=== PATIENT | female | born 1985 | race Caucasian/White ===

== ENCOUNTER 2017-05-10 19:04 | Emergency (ER) | payer BC, SELFPAY | END 2017-05-10 20:18 | disposition home or self-care (01) | PROVIDERS: Emergency Provider Nurse Practitioner; Family Provider Emergency Medicine; Visit Provider Nurse Practitioner | DX: J06.9 Acute upper respiratory infection, unspecified (principal); I10 Essential (primary) hypertension; Z72.0 Tobacco use | CPT/HCPCS: 87804; 87880; 99201 ==

== ENCOUNTER 2017-07-08 11:15 | Emergency (ER) | payer MEDICAID, SELFPAY ==
[2017-07-08 11:33] VITALS: BP 132/86; PULSE 90; RESP 20; TEMP 36.2; O2SAT 98; BMI 39.9
--- NOTE | 2017-07-08 11:47 | HMH.EDUTC ---
[facility] [place] Clinical Impression: Vertigo Disposition: Home, Self-Care Condition on Discharge: Good Instructions: DI for Vertigo, Vertigo Additional Instructions: Take medication as prescribed FOllow up with family doctor for further treatment and evaluation for dizziness and continue medication if Family doctor requests Return if needed Slow easy movements may help to decrease dizziness If your symptoms worsen or become life threatening go straight to the ER Prescriptions: Meclizine HCl [Meclizine 25mg Tab] 25 mg PO BID #20 tab Referrals: Garth Moreland APRN [Primary Care Provider] - Time of Disposition: 12:28 Medical Decision Making - Medical Records Medical records reviewed: Yes: I reviewed the patient's medical records. Vital Signs: 07/08/17 11:33 Temperature 97.2 F L Temperature Source Temporal Artery Scan Pulse Rate [Right] 90 Respiratory Rate 20 Blood Pressure [Right Arm] 132/86 Blood Pressure Mean [Right Arm] 101 Blood Pressure Source [Right Arm] Automatic Cuff Blood Pressure Position [Right Arm] Sitting 02 Sat by Pulse Oximetry 98 Oxygen Delivery Method Room Air - Lab Data Lab Results 07/08/17 11:39: Influenza Type A Ag Negative, Influenza Type B Ag Negative Orders (Tests/Meds): ED MEDICATIONS Discontinued Medications Generic Name Dose Route Start Last Admin Trade Name Freq PRN Reason Stop Dose Admin Meclizine HCl 25 mg 07/08/17 12:00 07/08/17 12:09 Antivert 25mg Tablet PO 07/08/17 12:01 25 mg ONCE ONE Administration - Jorge Inquiry Pt receiving controlled substance: No Jorge was queried for this patient: No - Reevaluation(s) Time: 12:23 Reevaluation #1: Patient state that Meclizine helped with dizziness, State that she is feeling much better and no longer feeling dizzy Patient was educated on Meclizne and informed that she would be given a prescription for Meclizine and would need to follow up with family doctor to continue mediacation [facility] [place] HPI - General Stated complaint: dizziness, nausea Mode of Arrival: Ambulatory Source of Information: Patient Limitations: No Limitations Description of Symptoms (Recalled from Triage Doc. by RN): DIZZY, NAUSEATED X2 DAYS HEENT Symptoms (Recalled from RN notes): No Resp Symptoms (Recalled from RN notes): No Skin Symptoms (Recalled from RN notes): No MS Symptoms (Recalled from RN notes): No Functional Status (Recalled from RN notes): N - History of Present Illness Provider Complaint: Patient state that she is suppose to get her TSH drawn this weekend for her family doctor State that she has been having some nausea and feeling dizzy State that she is not sure if she may have some fluid in her ears or not State that she just isn't feeling well - Related Data Home Medications Medication Instructions Recorded Confirmed albuterol sulfate HFA 90 1 puff INHALATION Q4H g 06/19/17 mcg/actuation aerosol inhaler fluticasone 50 mcg/actuation nasal 50 mcg INTRANASAL QDAY PRN 06/19/17 spray,suspension levothyroxine 125 mcg tablet 125 mcg PO QDAY tab 06/19/17 montelukast 10 mg tablet 10 mg PO QHS 06/19/17 norgestimate 0.25 mg-ethinyl 1 tab PO QDAY 06/19/17 estradiol 35 mcg tablet levocetirizine 5 mg tablet 5 mg PO QHS 06/20/17 Lisinopril [Prinivil 10mg Tablet] 10 mg PO QDAY 07/08/17 07/08/17 Previous Rx's Medication Instructions Recorded Meclizine HCl [Meclizine 25mg Tab] 25 mg PO BID #20 tab 07/08/17 Allergies Allergy/AdvReac Type Severity Reaction Status Date / Time amoxicillin [From AUGMENTIN] Allergy Unknown Verified 06/20/17 16:48 clavulanic acid Allergy Unknown Verified 06/20/17 16:48 [From AUGMENTIN] phenytoin [PHENYTOIN] Allergy Unknown Verified 06/20/17 16:48 - Worker's Comp Is this a Worker's Comp case?: No [facility] History I have reviewed the patient's past medical history: Yes Medical History: Reports:: Hypertension Other Medical History: Reports:
[2017-07-08 11:52] LABS: UTC Influenza A Antigen Negative (Negative); UTC Influenza B Antigen Negative (Negative)
--- NOTE | 2017-07-08 11:58 | ED_ITS ---
[facility] [place] Disposition Clinical Impression: Vertigo Disposition: Home, Self-Care Condition on Discharge: Good Instructions: DI for Vertigo, Vertigo Additional Instructions: Take medication as prescribed FOllow up with family doctor for further treatment and evaluation for dizziness and continue medication if Family doctor requests Return if needed Slow easy movements may help to decrease dizziness If your symptoms worsen or become life threatening go straight to the ER Prescriptions: Meclizine HCl [Meclizine 25mg Tab] 25 mg PO BID #20 tab Referrals: Garth Moreland APRN [Primary Care Provider] - Time of Disposition: 12:28 Medical Decision Making - Medical Records Medical records reviewed: Yes: I reviewed the patient's medical records. Vital Signs: 07/08/17 11:33 Temperature 97.2 F L Temperature Source Temporal Artery Scan Pulse Rate [Right] 90 Respiratory Rate 20 Blood Pressure [Right Arm] 132/86 Blood Pressure Mean [Right Arm] 101 Blood Pressure Source [Right Arm] Automatic Cuff Blood Pressure Position [Right Arm] Sitting 02 Sat by Pulse Oximetry 98 Oxygen Delivery Method Room Air - Lab Data Lab Results 07/08/17 11:39: Influenza Type A Ag Negative, Influenza Type B Ag Negative Orders (Tests/Meds): ED MEDICATIONS Discontinued Medications Generic Name Dose Route Start Last Admin Trade Name Freq PRN Reason Stop Dose Admin Meclizine HCl 25 mg 07/08/17 12:00 07/08/17 12:09 Antivert 25mg Tablet PO 07/08/17 12:01 25 mg ONCE ONE Administration - Jorge Inquiry Pt receiving controlled substance: No Jorge was queried for this patient: No - Reevaluation(s) Time: 12:23 Reevaluation #1: Patient state that Meclizine helped with dizziness, State that she is feeling much better and no longer feeling dizzy Patient was educated on Meclizne and informed that she would be given a prescription for Meclizine and would need to follow up with family doctor to continue mediacation [facility] [place] HPI - General Stated complaint: dizziness, nausea Mode of Arrival: Ambulatory Source of Information: Patient Limitations: No Limitations Description of Symptoms (Recalled from Triage Doc. by RN): DIZZY, NAUSEATED X2 DAYS HEENT Symptoms (Recalled from RN notes): No Resp Symptoms (Recalled from RN notes): No Skin Symptoms (Recalled from RN notes): No MS Symptoms (Recalled from RN notes): No Functional Status (Recalled from RN notes): N - History of Present Illness Provider Complaint: Patient state that she is suppose to get her TSH drawn this weekend for her family doctor State that she has been having some nausea and feeling dizzy State that she is not sure if she may have some fluid in her ears or not State that she just isn't feeling well - Related Data Home Medications Medication Instructions Recorded Confirmed albuterol sulfate HFA 90 1 puff INHALATION Q4H g 06/19/17 mcg/actuation aerosol inhaler fluticasone 50 mcg/actuation nasal 50 mcg INTRANASAL QDAY PRN 06/19/17 spray,suspension levothyroxine 125 mcg tablet 125 mcg PO QDAY tab 06/19/17 montelukast 10 mg tablet 10 mg PO QHS 06/19/17 norgestimate 0.25 mg-ethinyl 1 tab PO QDAY 06/19/17 estradiol 35 mcg tablet levocetirizine 5 mg tablet 5 mg PO QHS 06/20/17 Lisinopril
[2017-07-08 12:26] VITALS: BP 130/78; PULSE 65; RESP 20; TEMP 36.6; O2SAT 98
== END 2017-07-08 12:29 | disposition home or self-care (01) ==
PROVIDERS: Emergency Provider Nurse Practitioner; Family Provider Emergency Medicine; PCP Nurse Practitioner Family
DX: R42 Dizziness and giddiness (principal); I10 Essential (primary) hypertension; E03.9 Hypothyroidism, unspecified; Z79.899 Other long term (current) drug therapy; Z88.1 Allergy status to other antibiotic agents; F17.210 Nicotine dependence, cigarettes, uncomplicated
CPT/HCPCS: 87804; 99202

== ENCOUNTER → 2017-07-08 12:39 | Outpatient (CLI) | payer MEDICAID, SELFPAY ==
[2017-07-08 13:02] LABS: Basophils # 0.1 K/mm3 (0-0.2); Basophils % 0.5 % (0.1-2.0); Eosinophils # 0.3 K/mm3 (0.0-0.4); Hematocrit 40.9 % (37.0-47.0); Hemoglobin 13.7 g/dL (12.2-16.2); Lymphocytes # 2.7 K/mm3 (0.7-4.5); Mean Corpuscular HGB Conc 33.5 g/dL (31.8-35.4); Mean Corpuscular Hemoglobin 30.8 pg (27.0-31.2); Mean Platelet Volume 8.4 fl (7.4-10.4); Monocytes # 0.3 K/mm3 (0.1-1.0); Monocytes % 3.4 % (1.7-9.3); Neutrophils # 6.7 K/mm3 (1.8-7.8); Neutrophils % 66.2 % (37.0-80.0); Platelet Count 239 K/mm3 (142-424); Red Blood Count 4.45 M/mm3 (4.20-5.40); Red Cell Distribution Width 12.8 % (11.5-17.5); White Blood Count 10.1 K/mm3 (4.8-10.8)
[2017-07-08 13:31] LABS: Alanine Aminotransferase 29 U/L (12-78); Albumin Level 3.6 gm/dL (3.4-5.0); Albumin/Globulin Ratio 1.1 (1.1-1.8); Alkaline Phosphatase 74 U/L (46-116); Anion Gap 10.2 mEq/L (5-15); Aspartate Amino Transferase 12 U/L (15-37); Bilirubin,Total 0.2 mg/dL (0.2-1.0); Blood Urea Nitrogen 14 mg/dL (7-18); Calcium 8.8 mg/dL (8.5-10.1); Carbon Dioxide 29 mmol/L (21.0-32.0); Chloride 103 mmol/L (98-107); Creatinine,Serum 0.98 mg/dL (0.55-1.02); Estimated Glomerular Filt Rate 65 ml/min (>60); GFR (African American) 79 ML/MIN (>60); Globulin 3.4 gm/dl (1.3-3.2); Glucose 117 mg/dL (74-106); Potassium 4.2 mmoL/L (3.5-5.1); Sodium 138 mmol/L (136-145); T4 (Thyroxine) 13.5 ug/dl (4.7-13.3); Thyroid Stimulating Hormone 1.16 uIU/ml (0.358-3.740)
[2017-07-11 06:37] LABS: Vitamin B12 328 pg/mL (232-1245)
[2017-07-13 01:07] LABS: 1,25-Dihydroxy, Vitamin D-2 <10 pg/mL (.)
[2017-07-13 08:14] LABS: 1,25 Dihydroxy Vitamin D 107 pg/mL (.); 1,25-Dihydroxy, Vitamin D-3 106 pg/mL (.)
== END ==
PROVIDERS: PCP Nurse Practitioner Family; Visit Provider Nurse Practitioner Family
DX: R53.83 Other fatigue (principal); F41.9 Anxiety disorder, unspecified
CPT/HCPCS: 36415; 80053; 82607; 82652; 84436; 84443; 85025

== ENCOUNTER 2017-07-19 13:23 | Emergency (ER) | payer MEDICAID, SELFPAY ==
[2017-07-19 13:35] VITALS: BP 102/78; PULSE 88; RESP 20; TEMP 36.8; O2SAT 98; BMI 39.9
--- NOTE | 2017-07-19 14:02 | HMH.EDUTC ---
[facility] – [place] Disposition Clinical Impression: URI (upper respiratory infection) Qualifiers: URI type: unspecified URI Qualified Code(s): J06.9 - Acute upper respiratory infection, unspecified Disposition: Home, Self-Care Condition on Discharge: Good Instructions: Sore Throat, DI for Sinusitis Additional Instructions: * Monitor Temp. Tylenol and/or Ibuprofen as needed. ER if fever is no less than 101 despite alternating Tylenol and Ibuprofen * Encourage fluids, water, Gatorade, powerade, pedialyte if /toddler/or child * Warm salt water gargles for throat irritation *Warm fluids *Sore throat lozenges *Sleep elevated *humidifier or vaporizer Lots of rest Increase fluids, water, Gatorade, powerade Follow up IMMEDIATELY for new or worsening of symptoms OR no noticeable improvement over the next 48-72 hours. 911 immediately for any life threatening symptoms such as chest pain or difficulty breathing Referrals: Paul Apple MD [Primary Care Provider] - Forms: Work/School Release Time of Disposition: 14:18 Medical Decision Making - Medical Records Medical records reviewed: Yes: I reviewed the patient's medical records. Vital Signs: 07/19/17 13:35 Temperature 98.2 F Temperature Source Temporal Artery Scan Pulse Rate [Right] 88 Respiratory Rate 20 Blood Pressure [Right Arm] 102/78 Blood Pressure Mean [Right Arm] 86 Blood Pressure Source [Right Arm] Automatic Cuff Blood Pressure Position [Right Arm] Sitting 02 Sat by Pulse Oximetry 98 Oxygen Delivery Method Room Air - Lab Data Lab results reviewed: Yes: I reviewed the patient's lab results. - Jorge Inquiry Pt receiving controlled substance: No Jorge was queried for this patient: No [facility] [place] HPI - General Stated complaint: soa,wheezing,body aches Mode of Arrival: Ambulatory Source of Information: Patient Limitations: No Limitations Description of Symptoms (Recalled from Triage Doc. by RN): SORE THROAT, BODY ACHES LAST NIGHT HEENT Symptoms (Recalled from RN notes): Yes Resp Symptoms (Recalled from RN notes): No Skin Symptoms (Recalled from RN notes): No MS Symptoms (Recalled from RN notes): No Functional Status (Recalled from RN notes): N - History of Present Illness Provider Complaint: Patient states that she was seen and treated a couple of weeks ago for sinusitis State that now she is having sinus pain and drainage again State that initially it was clear and now color changed to greenish brown. State that she has been having flu like symptoms and body aches so she came in to make sure that she didn't have the flu - Related Data Home Medications Medication Instructions Recorded Confirmed albuterol sulfate HFA 90 1 puff INHALATION Q4H g 06/19/17 mcg/actuation aerosol inhaler fluticasone 50 mcg/actuation nasal 50 mcg INTRANASAL QDAY PRN 06/19/17 spray,suspension levothyroxine 125 mcg tablet 125 mcg PO QDAY tab 06/19/17 montelukast 10 mg tablet 10 mg PO QHS 06/19/17 norgestimate 0.25 mg-ethinyl 1 tab PO QDAY 06/19/17 estradiol 35 mcg tablet levocetirizine 5 mg tablet 5 mg PO QHS 06/20/17 Lisinopril [Prinivil 10mg Tablet] 10 mg PO QDAY 07/08/17 07/08/17 Previous Rx's Medication Instructions Recorded Meclizine HCl [Meclizine 25mg Tab] 25 mg PO BID #20 tab 07/08/17 Allergies Allergy/AdvReac Type Severity Reaction Status Date / Time sulfamethoxazole Allergy Intermediate Verified 07/19/17 14:11 [From Bactrim] trimethoprim [From Bactrim] Allergy Intermediate Verified 07/19/17 14:11 phenytoin [PHENYTOIN] Allergy Unknown Verified 06/20/17 16:48 - Worker's Comp Is this a Worker's Comp case?: No [facility] History I have reviewed the patient's past medical history: Yes Medical History: Reports:: Hypertension Other Medical History: Reports: Thyroid Disease - Social History Smoking Status: Current every day smoker Tobacco Type: cigarettes Alcohol Intake: never - Psychiatric History Expresses thoughts of crooks
--- NOTE | 2017-07-19 14:09 | ED_ITS ---
[facility] – [place] Disposition Clinical Impression: URI (upper respiratory infection) Qualifiers: URI type: unspecified URI Qualified Code(s): J06.9 - Acute upper respiratory infection, unspecified Disposition: Home, Self-Care Condition on Discharge: Good Instructions: Sore Throat, DI for Sinusitis Additional Instructions: * Monitor Temp. Tylenol and/or Ibuprofen as needed. ER if fever is no less than 101 despite alternating Tylenol and Ibuprofen * Encourage fluids, water, Gatorade, powerade, pedialyte if /toddler/or child * Warm salt water gargles for throat irritation *Warm fluids *Sore throat lozenges *Sleep elevated *humidifier or vaporizer Lots of rest Increase fluids, water, Gatorade, powerade Follow up IMMEDIATELY for new or worsening of symptoms OR no noticeable improvement over the next 48-72 hours. 911 immediately for any life threatening symptoms such as chest pain or difficulty breathing Referrals: Paul Apple MD [Primary Care Provider] - Forms: Work/School Release Time of Disposition: 14:18 Medical Decision Making - Medical Records Medical records reviewed: Yes: I reviewed the patient's medical records. Vital Signs: 07/19/17 13:35 Temperature 98.2 F Temperature Source Temporal Artery Scan Pulse Rate [Right] 88 Respiratory Rate 20 Blood Pressure [Right Arm] 102/78 Blood Pressure Mean [Right Arm] 86 Blood Pressure Source [Right Arm] Automatic Cuff Blood Pressure Position [Right Arm] Sitting 02 Sat by Pulse Oximetry 98 Oxygen Delivery Method Room Air - Lab Data Lab results reviewed: Yes: I reviewed the patient's lab results. - Jorge Inquiry Pt receiving controlled substance: No Jorge was queried for this patient: No [facility] [place] HPI - General Stated complaint: soa,wheezing,body aches Mode of Arrival: Ambulatory Source of Information: Patient Limitations: No Limitations Description of Symptoms (Recalled from Triage Doc. by RN): SORE THROAT, BODY ACHES LAST NIGHT HEENT Symptoms (Recalled from RN notes): Yes Resp Symptoms (Recalled from RN notes): No Skin Symptoms (Recalled from RN notes): No MS Symptoms (Recalled from RN notes): No Functional Status (Recalled from RN notes): N - History of Present Illness Provider Complaint: Patient states that she was seen and treated a couple of weeks ago for sinusitis State that now she is having sinus pain and drainage again State that initially it was clear and now color changed to greenish brown. State that she has been having flu like symptoms and body aches so she came in to make sure that she didn't have the flu - Related Data Home Medications Medication Instructions Recorded Confirmed albuterol sulfate HFA 90 1 puff INHALATION Q4H g 06/19/17 mcg/actuation aerosol inhaler fluticasone 50 mcg/actuation nasal 50 mcg INTRANASAL QDAY PRN 06/19/17 spray,suspension levothyroxine 125 mcg tablet 125 mcg PO QDAY tab 06/19/17 montelukast 10 mg tablet 10 mg PO QHS 06/19/17 norgestimate 0.25 mg-ethinyl 1 tab PO QDAY 06/19/17 estradiol 35 mcg tablet levocetirizine 5 mg tablet 5 mg PO QHS 06/20/17 Lisinopril [Prinivil 10mg Tablet] 10 mg PO QDAY 07/08/17 07/08/17 Previous Rx's Medication Instructions Recorded Meclizine HCl [Meclizine 25mg Tab] 25 mg PO BID #20 tab 07/08/17 Allergies Allergy/AdvReac Type
[2017-07-19 14:30] VITALS: BP 100/72; PULSE 88; RESP 18; TEMP 36.8
[2017-07-19 14:49] LABS: UTC Influenza A Antigen Negative (Negative); UTC Influenza B Antigen Negative (Negative); UTC Strep Screen (Rapid) Negative (Negative)
== END 2017-07-19 14:31 | disposition home or self-care (01) ==
PROVIDERS: Emergency Provider Nurse Practitioner; Family Provider Emergency Medicine; PCP Emergency Medicine
DX: J06.9 Acute upper respiratory infection, unspecified (principal)
CPT/HCPCS: 87804; 87880; 96372; 99203

== ENCOUNTER 2017-07-22 09:08 | Emergency (ER) | payer MEDICAID, SELFPAY ==
[2017-07-22 09:28] VITALS: BP 119/91; PULSE 85; RESP 20; TEMP 36.4; O2SAT 99; BMI 39.9
--- NOTE | 2017-07-22 09:37 | HMH.EDUTC ---
[facility] [place] Disposition Clinical Impression: Tobacco abuse Acute bronchitis Qualifiers: Bronchitis organism: unspecified organism Qualified Code(s): J20.9 - Acute bronchitis, unspecified Disposition: Home, Self-Care Condition on Discharge: Good Instructions: DI for Acute Bronchitis, How to Quit Tobacco Products Additional Instructions: * STOP SMOKING!!!! * start antibiotic today. Be sure to complete entire prescription even if feeling better. * Monitor Temp. Follow up if fever develops * humidifier/vaporizer/hot steamy shower * Inhaler every 4-6 hours as needed like we discussed. If unsure how to use it, ask pharmacist to demonstrate how. Should help open airways and improve cough, wheezing, shortness of breath. * Mucinex during the day for your cough and cough suppressant only at night. Be sure to drink lots of water. Insurance may not cover a prescription of mucinex. Might be cheaper to get 400mg tablets and take 2 tablets morning, midday and evening all with lots of water. * Promethazine DM cough syrup will cause drowsiness. Use it only at night. No driving, operating machinery or caring for small children after taking it. * Start steroid today. Helps with inflammation therefore, cough and wheezing. Follow directions on package. Rvwd side effects. Pt reports they have taken them before. Prescriptions: Albuterol Sulfate [Albuterol HFA Inhaler] 1 - 2 puffs IH Q4-6H PRN #1 inh PRN Reason: Shortness Of Breath Or Wheezing Azithromycin [Z-Himanshu 250mg Tab] 250 mg PO UD DOSE PK #6 tab predniSONE [Deltasone 10mg tablet] 10 mg PO BID #10 tab Promethazine/Dextromethorphan [Promethazine-Dm Syrup] 10 ml PO HS PRN #100 ml PRN Reason: Cough Referrals: Paul Apple MD [Primary Care Provider] - (Follow up IMMEDIATELY for new or worsening symptoms OR no noticeable improvement over the next 48-72 hours. 911 for difficulty breathing) Forms: Work/School Release Time of Disposition: :18 Medical Decision Making Vital Signs: 07/22/17 09:28 07/22/17 10:25 07/22/17 11:12 Temperature 97.6 F 98 F Temperature Source Temporal Artery Scan Pulse Rate 85 80 Pulse Rate [Left Radial] 85 Respiratory Rate 20 20 Blood Pressure 117/65 Blood Pressure [Right Arm] 119/91 Blood Pressure Mean [Right Arm] 100 02 Sat by Pulse Oximetry 99 Oxygen Delivery Method Room Air Room Air - Lab Data Lab results reviewed: Yes: I reviewed the patient's lab results. Lab Results 07/22/17 09:34: Influenza Type A Ag Negative, Influenza Type B Ag Negative Orders (Tests/Meds): ED MEDICATIONS Discontinued Medications Generic Name Dose Route Start Last Admin Trade Name Freq PRN Reason Stop Dose Admin Albuterol/Ipratropium 3 ml 07/22/17 09:44 07/22/17 10:25 Duoneb 3ml Neb IH 07/22/17 09:45 3 ml ONCE ONE Administration ORDERS Category Date Time Status XR chest 2V Stat Exams 07/22/17 09:44 Taken - Radiology Data #1 Image(s): Chest Image Reviewed: Yes I reviewed the patient's radiology image w/the ED provider Preliminary Findings: Normal/NAD Rvwd w/ Dr. Shay, ER - Jorge Inquiry Pt receiving controlled substance: No - Reevaluation(s) Reevaluation #1: Duoneb helped w/ feeling of SOA and also cough [facility] [place] HPI - General Stated complaint: cough,chest congestion Time Seen by Provider: 07/22/17 09:37 Mode of Arrival: Family Vehicle Source of Information: Patient Limitations: No Limitations Description of Symptoms (Recalled from Triage Doc. by RN): pt states she was seen in [facility] was given two shots and is now feeling worse with sob,diarrhea, body aches, chills, head congestion,cough. HEENT Symptoms (Recalled from RN notes): Yes (head congestion, body aches, chills) Resp Symptoms (Recalled from RN notes): Yes (cough, sob) Skin Symptoms (Recalled from RN notes): No MS Symptoms (Recalled from RN notes): No Functional Status (Recalled from RN notes): na - History of Present Illn
--- NOTE | 2017-07-22 09:43 | ED_ITS ---
[facility] [place] Clinical Impression: Tobacco abuse Acute bronchitis Qualifiers: Bronchitis organism: unspecified organism Qualified Code(s): J20.9 - Acute bronchitis, unspecified Disposition: Home, Self-Care Condition on Discharge: Good Instructions: DI for Acute Bronchitis, How to Quit Tobacco Products Additional Instructions: * STOP SMOKING!!!! * start antibiotic today. Be sure to complete entire prescription even if feeling better. * Monitor Temp. Follow up if fever develops * humidifier/vaporizer/hot steamy shower * Inhaler every 4-6 hours as needed like we discussed. If unsure how to use it, ask pharmacist to demonstrate how. Should help open airways and improve cough, wheezing, shortness of breath. * Mucinex during the day for your cough and cough suppressant only at night. Be sure to drink lots of water. Insurance may not cover a prescription of mucinex. Might be cheaper to get 400mg tablets and take 2 tablets morning, midday and evening all with lots of water. * Promethazine DM cough syrup will cause drowsiness. Use it only at night. No driving, operating machinery or caring for small children after taking it. * Start steroid today. Helps with inflammation therefore, cough and wheezing. Follow directions on package. Rvwd side effects. Pt reports they have taken them before. Prescriptions: Albuterol Sulfate [Albuterol HFA Inhaler] 1 - 2 puffs IH Q4-6H PRN #1 inh PRN Reason: Shortness Of Breath Or Wheezing Azithromycin [Z-Himanshu 250mg Tab] 250 mg PO UD DOSE PK #6 tab predniSONE [Deltasone 10mg tablet] 10 mg PO BID #10 tab Promethazine/Dextromethorphan [Promethazine-Dm Syrup] 10 ml PO HS PRN #100 ml PRN Reason: Cough Referrals: Paul Apple MD [Primary Care Provider] - (Follow up IMMEDIATELY for new or worsening symptoms OR no noticeable improvement over the next 48-72 hours. 911 for difficulty breathing) Forms: Work/School Release Time of Disposition: :18 Medical Decision Making Vital Signs: 07/22/17 09:28 07/22/17 10:25 07/22/17 11:12 Temperature 97.6 F 98 F Temperature Source Temporal Artery Scan Pulse Rate 85 80 Pulse Rate [Left Radial] 85 Respiratory Rate 20 20 Blood Pressure 117/65 Blood Pressure [Right Arm] 119/91 Blood Pressure Mean [Right Arm] 100 02 Sat by Pulse Oximetry 99 Oxygen Delivery Method Room Air Room Air - Lab Data Lab results reviewed: Yes: I reviewed the patient's lab results. Lab Results 07/22/17 09:34: Influenza Type A Ag Negative, Influenza Type B Ag Negative Orders (Tests/Meds): ED MEDICATIONS Discontinued Medications Generic Name Dose Route Start Last Admin Trade Name Freq PRN Reason Stop Dose Admin Albuterol/Ipratropium 3 ml 07/22/17 09:44 07/22/17 10:25 Duoneb 3ml Neb IH 07/22/17 09:45 3 ml ONCE ONE Administration ORDERS Category Date Time Status XR chest 2V Stat Exams 07/22/17 09:44 Taken - Radiology Data #1 Image(s): Chest Image Reviewed: Yes I reviewed the patient's radiology image w/the ED provider Preliminary Findings: Normal/NAD Rvwd w/ Dr. Shay, ER - Jorge Inquiry Pt receiving controlled substance: No - Reevaluation(s) Reevaluation #1: Duoneb helped w/ feeling of SOA and also cough [facility] [place] - General Stated complaint: cough,chest congestion Time Seen by Prov
--- NOTE | 2017-07-22 09:44 | XR_ITS ---
XR chest 2V HISTORY: Smoker, worsening cough, shortness of air ITS.REASON: worsening cough, SOA ORDERING PHYSICIAN: eVl Penaloza PATIENT AGE: 32 years COMPARISON: 10/04/2014 FINDINGS: The cardiomediastinal silhouette and pulmonary vascularity are within normal limits. The lungs are clear without infiltrates, suspicious nodules, or pleural effusions. No acute bony abnormalities. IMPRESSION: Negative chest, no acute finding
[2017-07-22 10:16] LABS: UTC Influenza A Antigen Negative (Negative); UTC Influenza B Antigen Negative (Negative)
[2017-07-22 10:25] VITALS: PULSE 81; PULSE 85
[2017-07-22 11:12] VITALS: BP 117/65; PULSE 80; RESP 20; TEMP 36.6; O2SAT 99
== END 2017-07-22 11:20 | disposition home or self-care (01) ==
PROVIDERS: Emergency Provider Nurse Practitioner Family; Family Provider Emergency Medicine; PCP Emergency Medicine
DX: J20.9 Acute bronchitis, unspecified (principal); I10 Essential (primary) hypertension; F17.210 Nicotine dependence, cigarettes, uncomplicated; Z88.2 Allergy status to sulfonamides; Z79.899 Other long term (current) drug therapy
CPT/HCPCS: 71046; 87804; 99202

== ENCOUNTER → 2018-04-16 15:00 | Outpatient (CLI) | payer MEDICAID, SELFPAY ==
[2018-04-19 10:51] LABS: H. pylori Breath Test Negative (Negative)
== END ==
PROVIDERS: Visit Provider Nurse Practitioner Family
DX: R10.9 Unspecified abdominal pain (principal); R11.2 Nausea with vomiting, unspecified
CPT/HCPCS: 83013

== ENCOUNTER 2018-09-06 13:27 | Emergency (ER) | payer MEDICAID, SELFPAY ==
[2018-09-06 13:42] VITALS: BP 110/73; PULSE 91; RESP 19; TEMP 36.2; O2SAT 97; BMI 40.3
--- NOTE | 2018-09-06 13:49 | HMH.EDUTC ---
[facility] [place] Clinical Impression: Epigastric abdominal pain Disposition: Home, Self-Care Condition on Discharge: Good Instructions: DI for Epigastric Pain Additional Instructions: F/U with PCP next week. Prescriptions: Dicyclomine HCl [Bentyl 10mg capsule] 10 mg PO QID 10 Days #30 cap Referrals: Paul Apple MD [Primary Care Provider] - Time of Disposition: 15:07 Medical Decision Making - Jorge Inquiry Pt receiving controlled substance: No Vital Signs: 09/06/18 13:42 Temperature 97.2 F L Temperature Source Oral Pulse Rate [Right Brachial] 91 H Respiratory Rate 19 Blood Pressure [Right Arm] 110/73 Blood Pressure Mean [Right Arm] 85 Blood Pressure Source [Right Arm] Automatic Cuff Blood Pressure Position [Right Arm] Sitting 02 Sat by Pulse Oximetry 97 Oxygen Delivery Method Room Air - Lab Data Lab results reviewed: Yes: I reviewed the patient's lab results. Lab Results 09/06/18 13:51: Urine Color Yellow, Urine Appearance Clear, Urine pH 5.5, Ur Specific [place] 1.030, Urine Protein 3+, Urine Glucose (UA) Negative, Urine Ketones Trace, Urine Blood 2+, Urine Nitrate Negative, Urine Bilirubin 1+ A, Urine Urobilinogen 0.2, Ur Leukocyte Esterase Negative, [facility] Negative 09/06/18 14:02: WBC 8.1, RBC 4.47, Hgb 14.1, Hct 40.6, MCV 90.9, MCH 31.6 H, MCHC 34.7, RDW 13.1, Plt Count 263, MPV 7.9, Neut % (Auto) 67.5, Lymph % (Auto) 25.4, [place] % (Auto) 3.5, Eos % (Auto) 3.4, Baso % (Auto) 0.3, Neut # (Auto) 5.5, Lymph # (Auto) 2.1, [place] # (Auto) 0.3, Eos # (Auto) 0.3, Baso # (Auto) 0.0 09/06/18 14:02: Sodium 137, Potassium 3.7, Chloride 103, Carbon Dioxide 24, Anion Gap 13.7, BUN 14, Creatinine 0.76, Estimated Creat Clear 187, Estimated GFR 87, Est GFR ( Amer) 105, Glucose 119 H, Calcium 8.7, Total Bilirubin 0.2, AST 16, ALT 31, Alkaline Phosphatase 81, Total Protein 7.7, Albumin 3.5, Globulin 4.2 H, Albumin/Globulin Ratio 0.8 L, Amylase 37 09/06/18 14:02: Lipase 82 09/06/18 14:02: Troponin I < 0.02 Result diagrams: 09/06/18 14:02 09/06/18 14:02 Orders (Tests/Meds): ORDERS Category Date Time Status 12-lead EKG Request [ECG Request by /Evelin] Stat Y 09/06/18 13:54 Ordered - ECG Data Tracing #1 ECG initial impression date: 09/06/18 ECG initial impression time: 14:09 Normal Sinus Rhythm: Yes Medical Decision Narrative: Patient had cholecystectomy several years ago and has had problems with reflux off and on since. Presence of bilirubin in urine. May need gastro referral in future to rule out bile duct stone. Trial Bentyl. Labs normal. F/U with PCP next week. [facility] [place] - General Stated complaint: stomach pain Time Seen by Provider: 09/06/18 13:49 Mode of Arrival: Family Vehicle Source of Information: Patient Limitations: No Limitations Description of Symptoms (Recalled from Triage Doc. by RN): C/O NAUSEA X 3 DAYS WITH ABDOMINAL PAIN,LIGHTHEADEDNESS,DIZZY AND DIAPHORESIS HEENT Symptoms (Recalled from RN notes): No Resp Symptoms (Recalled from RN notes): No Skin Symptoms (Recalled from RN notes): No MS Symptoms (Recalled from RN notes): No Functional Status (Recalled from RN notes): N/A - History of Present Illness Provider Complaint: Patient complains of severe abdominal pain since last night. Hurts in epigastric region, radiates around both sides to back. Does not have a gallbladder. Does have GERD and takes Prilosec daily. No history of bleeding ulcers. Nausea, but no vomiting. Pain worse for the past few hours. Says it takes her breath, feels clammy and dizzy. No history of diabetes or heart disease, but does have family history of both. LMP 3 weeks ago. Does have history of kidney stones, but pain is generally more to one side. No diarrhea and states bowel movements appear normal. Took Beano last night without relief. Onset (ago): hour(s) (18) Location: abdomen Radiation: back Quality: sharp, constant Consistency: constant Relieving factors:
[2018-09-06 13:52] LABS: Apearance,Urine Clear (Clear); Bilirubin,Urine 1+ (Negative); Blood, Urine 2+ (Negative); Color,Urine Yellow (Yellow); Glucose,Urine (UA) Negative (Negative); Ketones,Urine TRACE (Negative); PH,Urine 5.5 (5.0-8.5); Protein,Urine 3+ (Negative); UTC Leukocyte Esterase,Urine Negative (Negative); UTC Nitrate,Urine Negative (Negative); UTC Pregnancy Test, Urine Negative (Negative); Urobilinogen,Urine 0.2 EU/dl (0.2)
--- NOTE | 2018-09-06 13:55 | ED_ITS ---
[facility] [place] Clinical Impression: Epigastric abdominal pain Disposition: Home, Self-Care Condition on Discharge: Good Instructions: DI for Epigastric Pain Additional Instructions: F/U with PCP next week. Prescriptions: Dicyclomine HCl [Bentyl 10mg capsule] 10 mg PO QID 10 Days #30 cap Referrals: Paul Apple MD [Primary Care Provider] - Time of Disposition: 15:07 Medical Decision Making - Jorge Inquiry Pt receiving controlled substance: No Vital Signs: 09/06/18 13:42 Temperature 97.2 F L Temperature Source Oral Pulse Rate [Right Brachial] 91 H Respiratory Rate 19 Blood Pressure [Right Arm] 110/73 Blood Pressure Mean [Right Arm] 85 Blood Pressure Source [Right Arm] Automatic Cuff Blood Pressure Position [Right Arm] Sitting 02 Sat by Pulse Oximetry 97 Oxygen Delivery Method Room Air - Lab Data Lab results reviewed: Yes: I reviewed the patient's lab results. Lab Results 09/06/18 13:51: Urine Color Yellow, Urine Appearance Clear, Urine pH 5.5, Ur Sp ecific [place] 1.030, Urine Protein 3+, Urine Glucose (UA) Negative, Urine Ketones Trace, Urine Blood 2+, Urine Nitrate Negative, Urine Bilirubin 1+ A, Urine Urobilinogen 0.2, Ur Leukocyte Esterase Negative, [facility] Clinic Negative 09/06/18 14:02: WBC 8.1, RBC 4.47, Hgb 14.1, Hct 40.6, MCV 90.9, MCH 31.6 H, MCHC 34.7, RDW 13.1, Plt Count 263, MPV 7.9, Neut % (Auto) 67.5, Lymph % (Auto) 25.4, [place] % (Auto) 3.5, Eos % (Auto) 3.4, Baso % (Auto) 0.3, Neut # (Auto) 5.5, Lymph # (Auto) 2.1, [place] # (Auto) 0.3, Eos # (Auto) 0.3, Baso # (Auto) 0.0 09/06/18 14:02: Sodium 137, Potassium 3.7, Chloride 103, Carbon Dioxide 24, Anion Gap 13.7, BUN 14, Creatinine 0.76, Estimated Creat Clear 187, Estimated GFR 87, Est GFR ( Amer) 105, Glucose 119 H, Calcium 8.7, Total Bilirubin 0.2, AST 16, ALT 31, Alkaline Phosphatase 81, Total Protein 7.7, Albumin 3.5, Globulin 4.2 H, Albumin/Globulin Ratio 0.8 L, Amylase 37 09/06/18 14:02: Lipase 82 09/06/18 14:02: Troponin I < 0.02 Result diagrams: 09/06/18 14:02 09/06/18 14:02 Orders (Tests/Meds): ORDERS Category Date Time Status 12-lead EKG Request [ECG Request by /Evelin] Stat Y 09/06/18 13:54 Ordered - ECG Data Tracing #1 ECG initial impression date: 09/06/18 ECG initial impression time: 14:09 Normal Sinus Rhythm: Yes Medical Decision Narrative: Patient had cholecystectomy several years ago and has had problems with reflux off and on since. Presence of bilirubin in urine. May need gastro referral in future to rule out bile duct stone. Trial Bentyl. Labs normal. F/U with PCP next week. [facility] [place] - General Stated complaint: stomach pain Time Seen by Provider: 09/06/18 13:49 Mode of Arrival: Family Vehicle Source of Information: Patient Limitations: No Limitations Description of Symptoms (Recalled from Triage Doc. by RN): C/O NAUSEA X 3 DAYS WITH ABDOMINAL PAIN,LIGHTHEADEDNESS,DIZZY AND DIAPHORESIS HEENT Symptoms (Recalled from RN notes): No Resp Symptoms (Recalled from RN notes): No Skin Symptoms (Recalled from RN notes): No MS Symptoms (Recalled from RN notes): No Functional Status (Recalled from RN notes): N/A - History of Present Illness Provider Complaint: Patient complains of severe abdominal pain since last ni
[2018-09-06 14:17] LABS: Basophils % 0.3 % (0.1-2.0); Eosinophils # 0.3 K/mm3 (0.0-0.4); Eosinophils % 3.4 % (0.1-12.0); Hematocrit 40.6 % (37.0-47.0); Hemoglobin 14.1 g/dL (12.2-16.2); Lymphocytes # 2.1 K/mm3 (0.7-4.5); Lymphocytes % 25.4 % (10-50); Mean Corpuscular HGB Conc 34.7 g/dL (31.8-35.4); Mean Corpuscular Hemoglobin 31.6 pg (27.0-31.2); Mean Corpuscular Volume 90.9 fl (81-99); Mean Platelet Volume 7.9 fl (7.4-10.4); Monocytes # 0.3 K/mm3 (0.1-1.0); Monocytes % 3.5 % (1.7-9.3); Neutrophils # 5.5 K/mm3 (1.8-7.8); Neutrophils % 67.5 % (37.0-80.0); Platelet Count 263 K/mm3 (142-424); Red Blood Count 4.47 M/mm3 (4.20-5.40); Red Cell Distribution Width 13.1 % (11.5-17.5); White Blood Count 8.1 K/mm3 (4.8-10.8)
[2018-09-06 14:49] LABS: Alanine Aminotransferase 31 U/L (12-78); Albumin Level 3.5 gm/dL (3.4-5.0); Albumin/Globulin Ratio 0.8 (1.1-1.8); Alkaline Phosphatase 81 U/L (46-116); Amylase 37 U/L (25-115); Anion Gap 13.7 mEq/L (5-15); Aspartate Amino Transferase 16 U/L (15-37); Bilirubin,Total 0.2 mg/dL (0.2-1.0); Blood Urea Nitrogen 14 mg/dL (7-18); Calcium 8.7 mg/dL (8.5-10.1); Carbon Dioxide 24 mmol/L (21.0-32.0); Chloride 103 mmol/L (98-107); Creatinine Clearance Estimated 187 mL/min (50-200); Creatinine,Serum 0.76 mg/dL (0.55-1.02); Estimated Glomerular Filt Rate 87 ml/min (>60); GFR (African American) 105 ML/MIN (>60); Globulin 4.2 gm/dl (1.3-3.2); Glucose 119 mg/dL (74-106); Potassium 3.7 mmoL/L (3.5-5.1); Sodium 137 mmol/L (136-145); Total Protein,Serum 7.7 gm/dL (6.4-8.2)
[2018-09-06 15:03] LABS: Lipase 82 u/L (73-393); Troponin I < 0.02 ng/ml (0.00-0.06)
[2018-09-06 15:10] VITALS: BP 110/73; PULSE 91; RESP 19; TEMP 36.2; O2SAT 97
== END 2018-09-06 15:12 | disposition home or self-care (01) ==
PROVIDERS: Emergency Provider Physician Assistant; PCP Emergency Medicine
DX: R10.13 Epigastric pain (principal); K21.9 Gastro-esophageal reflux disease without esophagitis; Z51.81 Encounter for therapeutic drug level monitoring; Z88.2 Allergy status to sulfonamides; I10 Essential (primary) hypertension
CPT/HCPCS: 80053; 81003; 81025; 82150; 83690; 84484; 85025; 93005; 99202

== ENCOUNTER → 2020-01-28 19:28 | Outpatient (CLI) | payer OTHER, SELFPAY | PROVIDERS: Visit Provider Physician Assistant | DX: N39.0 Urinary tract infection, site not specified (principal) | CPT/HCPCS: 87086; 87088; 87186 ==

== ENCOUNTER → 2020-02-18 11:40 | Outpatient (CLI) | payer OTHER, SELFPAY | PROVIDERS: PCP Emergency Medicine; Visit Provider Physician Assistant | DX: Z03.818 Encounter for observation for suspected exposure to other biological agents ruled out (principal) | CPT/HCPCS: U0003 ==

== ENCOUNTER → 2021-01-10 15:52 | Outpatient (CLI) | payer OTHER, SELFPAY | PROVIDERS: Visit Provider Physician Assistant | DX: Z11.52 Encounter for screening for COVID-19 (principal); U07.1 COVID-19 | CPT/HCPCS: U0003 ==

== ENCOUNTER → 2021-04-20 15:14 | Outpatient (CLI) | payer OTHER, SELFPAY ==
[2021-04-20 15:32] LABS: Basophils # 0.1 K/mm3 (0-0.2); Basophils % 0.9 % (0.1-2.0); Eosinophils # 0.2 K/mm3 (0.0-0.4); Eosinophils % 1.8 % (0.1-12.0); Hematocrit 43.6 % (37.0-47.0); Hemoglobin 14.8 g/dL (12.2-16.2); Lymphocytes # 3.2 K/mm3 (0.7-4.5); Lymphocytes % 32.5 % (10-50); Mean Corpuscular Hemoglobin 32.5 pg (27.0-31.2); Mean Corpuscular Volume 95.5 fl (81-99); Mean Platelet Volume 9.3 fl (7.4-10.4); Monocytes # 0.3 K/mm3 (0.1-1.0); Monocytes % 2.8 % (1.7-9.3); Neutrophils # 6.1 K/mm3 (1.8-7.8); Platelet Count 273 K/mm3 (142-424); Red Blood Count 4.56 M/mm3 (4.20-5.40); Red Cell Distribution Width 13.1 % (11.5-17.5); White Blood Count 9.8 K/mm3 (4.8-10.8)
[2021-04-20 15:37] LABS: Alanine Aminotransferase 21 U/L (12-78); Albumin Level 4.5 g/dl (3.5-5.0); Albumin/Globulin Ratio 1.7 (1.1-1.8); Alkaline Phosphatase 82 U/L (38-126); Anion Gap 15.2 mEq/L (5-15); Aspartate Amino Transferase 42 U/L (14-36); Bilirubin,Total 0.4 mg/dl (0.2-1.3); Blood Urea Nitrogen 10 mg/dl (7-17); Calcium 9.5 mg/dl (8.4-10.2); Carbon Dioxide 25 mmol/L (22.0-30.0); Chloride 101 mmol/L (98-107); Chol/HDL Ratio 4.7 (1-3.5); Cholesterol 166 mg/dl (140-200); Estimated Glomerular Filt Rate 95 ml/min (>60); GFR (African American) 115 ML/MIN (>60); Globulin 2.6 g/dL (1.3-3.2); Glucose 150 mg/dl (74-100); HDL Cholesterol 35 mg/dl (40-60); Potassium 4.2 mmoL/L (3.5-5.1); Sodium 137 mmol/L (136-145); Total Protein,Serum 7.1 g/dl (6.3-8.2)
[2021-04-20 15:39] LABS: Triglycerides 511 mg/dl (30-150)
[2021-04-20 15:43] LABS: Hemoglobin A1C 8.4 % (4.0-6.0)
[2021-04-20 15:48] LABS: Direct LDL Cholesterol 67.12 mg/dL (100-129)
[2021-04-20 15:54] LABS: 25-OH Vitamin D, Total 34.2 ng/mL (30-100)
[2021-04-20 16:08] LABS: Thyroid Stimulating Hormone 8.16 uIU/mL (0.465-4.68)
[2021-04-22 11:28] LABS: C-Peptide 4.1 ng/mL (1.1-4.4)
== END ==
PROVIDERS: Visit Provider Physician Assistant
DX: E03.9 Hypothyroidism, unspecified (principal); R73.9 Hyperglycemia, unspecified
CPT/HCPCS: 80053; 80061; 82306; 83036; 84443; 84681; 85025

== ENCOUNTER → 2021-05-19 13:32 | Outpatient (CLI) | payer OTHER, SELFPAY ==
--- NOTE | 2021-05-19 14:38 | CT_ITS ---
PROCEDURE: CT CHEST WO CON CLINICAL INDICATION: abnl ecg/tob use COMPARISON: No exams were available for comparison TECHNIQUE: Axial images obtained with sagittal and coronal reformats. All CT scans at the facility use one or more dose reduction, viz: automated exposure control, ma/kV adjustment per patient size (including targeted exams where dose is matched to indication, i.e. head), or iterative reconstruction technique. FINDINGS: HEART AND MEDIASTINAL STRUCTURES: There are few scattered small mediastinal lymph nodes. No mediastinal mass. LUNGS AND PLEURAL SPACES: Mild atelectatic or fibrotic change in the left lung base. Evidence of old granulomatous disease. No suspicious nodule apparent. No lobar consolidation or collapse. BONY STRUCTURES: Degenerative changes thoracic spine. 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 UPPER ABDOMEN: Fatty liver ADDITIONAL FINDINGS: Small bilateral axillary nodes IMPRESSION: No acute finding. Minimal atelectasis or fibrotic change in the left lung base Fatty liver Cervical ribs more prominent on the right Dictated by: Francisco Myles MD 05/20/2021 09:54 Francisco Myles MD in [place] 05/20/2021 09:54
== END ==
PROVIDERS: PCP Nurse Practitioner Family; Visit Provider Internal Medicine Cardiovascular Disease
DX: R06.00 Dyspnea, unspecified (principal); I10 Essential (primary) hypertension; R94.31 Abnormal electrocardiogram [ECG] [EKG]; Z72.0 Tobacco use
CPT/HCPCS: 71250; 93306

== ENCOUNTER → 2021-07-08 16:00 | Outpatient (CLI) | payer OTHER, SELFPAY | PROVIDERS: Visit Provider Nurse Practitioner Family | DX: R82.90 Unspecified abnormal findings in urine (principal) | CPT/HCPCS: 82043 ==

== ENCOUNTER → 2021-07-13 16:00 | Outpatient (CLI) | payer OTHER, SELFPAY | PROVIDERS: Visit Provider Nurse Practitioner Family | DX: N39.0 Urinary tract infection, site not specified (principal) | CPT/HCPCS: 87086 ==

== ENCOUNTER → 2021-08-05 14:15 | Outpatient (CLI) | payer OTHER, SELFPAY ==
[2021-08-05 17:49] LABS: Basophils # 0.1 K/mm3 (0-0.2); Eosinophils # 0.3 K/mm3 (0.0-0.4); Eosinophils % 2.8 % (0.1-12.0); Hematocrit 41.6 % (37.0-47.0); Hemoglobin 13.9 g/dL (12.2-16.2); Lymphocytes # 3.2 K/mm3 (0.7-4.5); Lymphocytes % 34.2 % (10-50); Mean Corpuscular HGB Conc 33.4 g/dL (31.8-35.4); Mean Corpuscular Hemoglobin 31.7 pg (27.0-31.2); Mean Corpuscular Volume 94.9 fl (81-99); Mean Platelet Volume 10.8 fl (7.4-10.4); Monocytes # 0.4 K/mm3 (0.1-1.0); Monocytes % 4.7 % (1.7-9.3); Neutrophils # 5.4 K/mm3 (1.8-7.8); Neutrophils % 57.4 % (37.0-80.0); Platelet Count 277 K/mm3 (142-424); Red Blood Count 4.39 M/mm3 (4.20-5.40); Red Cell Distribution Width 13.2 % (11.5-17.5); White Blood Count 9.5 K/mm3 (4.8-10.8)
[2021-08-05 19:04] LABS: Alanine Aminotransferase 27 U/L (12-78); Albumin/Globulin Ratio 1.7 (1.1-1.8); Alkaline Phosphatase 75 U/L (38-126); Anion Gap 13.4 mEq/L (5-15); Aspartate Amino Transferase 39 U/L (14-36); Bilirubin,Total 0.3 mg/dl (0.2-1.3); Blood Urea Nitrogen 13 mg/dl (7-17); Calcium 9.2 mg/dl (8.4-10.2); Carbon Dioxide 26 mmol/L (22.0-30.0); Chloride 102 mmol/L (98-107); Chol/HDL Ratio 4.1 (1-3.5); Cholesterol 123 mg/dl (140-200); Estimated Glomerular Filt Rate 139 ml/min (>60); GFR (African American) 168 ML/MIN (>60); Globulin 2.4 g/dL (1.3-3.2); Glucose 135 mg/dl (74-100); HDL Cholesterol 30 mg/dl (40-60); Potassium 4.4 mmoL/L (3.5-5.1); Sodium 137 mmol/L (136-145); Total Protein,Serum 6.4 g/dl (6.3-8.2); Triglycerides 312 mg/dl (30-150); VLDL Cholesterol 62 mg/dL (0-40)
[2021-08-05 19:15] LABS: Direct LDL Cholesterol 49.36 mg/dL (100-129)
[2021-08-05 19:21] LABS: T4 (Thyroxine) 19.8 ug/dl (5.53-11.0)
[2021-08-05 19:22] LABS: 25-OH Vitamin D, Total 40.4 ng/mL (30-100)
[2021-08-05 19:29] LABS: Hemoglobin A1C 6.5 % (4.0-6.0)
[2021-08-05 19:35] LABS: Thyroid Stimulating Hormone < 0.02 uIU/mL (0.465-4.68)
== END ==
PROVIDERS: Visit Provider Nurse Practitioner Family
DX: E11.9 Type 2 diabetes mellitus without complications (principal); I10 Essential (primary) hypertension; E66.9 Obesity, unspecified; Z68.35 Body mass index [BMI] 35.0-35.9, adult; F17.210 Nicotine dependence, cigarettes, uncomplicated; Z79.84 Long term (current) use of oral hypoglycemic drugs
CPT/HCPCS: 80053; 80061; 82306; 83036; 84436; 84443; 84681; 85025

== ENCOUNTER → 2021-09-22 14:29 | Outpatient (POV) | payer OTHER, SELFPAY | PROVIDERS: Visit Provider Internal Medicine Nephrology | DX: Z00.00 Encounter for general adult medical examination without abnormal findings (principal) ==

== ENCOUNTER → 2021-09-22 15:27 | Outpatient (CLI) | payer OTHER, SELFPAY ==
[2021-09-22 15:34] LABS: Microscopic, Urine URINE MICROSCOPIC (MICROSCOPIC)
[2021-09-22 18:00] LABS: Appearance,Urine CLEAR (Clear); Bilirubin,Urine Negative (Negative); Blood, Urine TRACE-L (Negative); Color,Urine YELLOW (Yellow); Glucose,Urine (UA) Negative (Negative); Ketones,Urine Negative (Negative); Leukocyte Esterase,Urine Negative (Negative); Nitrate,Urine Negative (Negative); Protein,Urine Negative (Negative); Specific Gravity, Urine >= 1.030 (1.005-1.030); Urobilinogen,Urine 0.2 EU/dl (0.2)
[2021-09-22 18:15] LABS: Creatinine,Urine Random 134 mg/dL (Not Estab.)
[2021-09-22 18:31] LABS: RBC,Urine Occasional #/hpf (0-3)
== END ==
PROVIDERS: Visit Provider Internal Medicine Nephrology
DX: R80.9 Proteinuria, unspecified (principal); E55.9 Vitamin D deficiency, unspecified
CPT/HCPCS: 81001; 82043; 82570; 84155

== ENCOUNTER → 2022-01-26 06:40 | Outpatient (CLI) | payer OTHER, SELFPAY ==
[2022-01-26 18:07] LABS: Adenovirus,PCR Not Detected (NotDetected); Bordetella Pertussis Not Detected (NotDetected); Chlamydophila Pneumoniae, PCR Not Detected (NotDetected); Coronavirus 19, PCR Not Detected (NotDetected); Coronavirus 229E Not Detected (NotDetected); Coronavirus NL63 Not Detected (NotDetected); Coronavirus OC43 Not Detected (NotDetected); Coronovirus HKU1,PCR Not Detected (NotDetected); Human Metapneumovirus Not Detected (NotDetected); Influenza A, PCR Not Detected (NotDetected); Influenza AH1, 2009 Not Detected (NotDetected); Influenza AH1, PCR Not Detected (NotDetected); Influenza AH3,PCR Not Detected (NotDetected); Influenza B, PCR Not Detected (NotDetected); Mycoplasma Pneumoniae, PCR Not Detected (NotDetected); Parainfluenza 1, PCR Not Detected (NotDetected); Parainfluenza 2, PCR Not Detected (NotDetected); Parainfluenza 3, PCR Not Detected (NotDetected); Parainfluenza 4, PCR Not Detected (NotDetected); Respiratory Syncytial Virus Not Detected (NotDetected)
[2022-01-27 18:06] LABS: Rhinovirus/Enterovirus Detected (NotDetected)
== END ==
PROVIDERS: PCP Physician Assistant; Visit Provider Physician Assistant
DX: Z20.822 Contact with and (suspected) exposure to COVID-19 (principal); R05.9 Cough, unspecified; B34.8 Other viral infections of unspecified site
CPT/HCPCS: 87581; 87632; 87798; C9803; U0003; U0005

== ENCOUNTER → 2022-02-07 08:45 | Outpatient (CLI) | payer OTHER, SELFPAY ==
[2022-02-07 16:21] LABS: Basophils # 0.1 K/mm3 (0-0.2); Basophils % 1.3 % (0.1-2.0); Eosinophils # 0.2 K/mm3 (0.0-0.4); Eosinophils % 2.6 % (0.1-12.0); Hematocrit 46.7 % (37.0-47.0); Hemoglobin 14.9 g/dL (12.2-16.2); Lymphocytes # 2.9 K/mm3 (0.7-4.5); Lymphocytes % 30.8 % (10-50); Mean Corpuscular HGB Conc 31.9 g/dL (31.8-35.4); Mean Corpuscular Hemoglobin 32.3 pg (27.0-31.2); Mean Corpuscular Volume 101.2 fl (81-99); Monocytes # 0.3 K/mm3 (0.1-1.0); Monocytes % 3.3 % (1.7-9.3); Neutrophils # 5.8 K/mm3 (1.8-7.8); Neutrophils % 62.1 % (37.0-80.0); Platelet Count 310 K/mm3 (142-424); Red Blood Count 4.61 M/mm3 (4.20-5.40); White Blood Count 9.3 K/mm3 (4.8-10.8)
[2022-02-07 17:05] LABS: Alanine Aminotransferase 43 U/L (12-78); Albumin Level 4.5 g/dl (3.5-5.0); Albumin/Globulin Ratio 1.6 (1.1-1.8); Alkaline Phosphatase 84 U/L (38-126); Anion Gap 19.3 mEq/L (5-15); Aspartate Amino Transferase 50 U/L (14-36); Blood Urea Nitrogen 12 mg/dl (7-17); Calcium 9.2 mg/dl (8.4-10.2); Carbon Dioxide 27 mmol/L (22.0-30.0); Chloride 98 mmol/L (98-107); Cholesterol 125 mg/dl (140-200); Estimated Glomerular Filt Rate 112 ml/min (>60); GFR (African American) 136 ML/MIN (>60); Globulin 2.8 g/dL (1.3-3.2); Glucose 96 mg/dl (74-100); HDL Cholesterol 41 mg/dl (40-60); Potassium 4.3 mmoL/L (3.5-5.1); Sodium 140 mmol/L (136-145); Total Protein,Serum 7.3 g/dl (6.3-8.2); Triglycerides 164 mg/dl (30-150); VLDL Cholesterol 33 mg/dL (0-40)
[2022-02-07 17:10] LABS: Bilirubin,Total 0.1 mg/dl (0.2-1.3)
[2022-02-07 17:16] LABS: Direct LDL Cholesterol 58.08 mg/dL (100-129)
[2022-02-07 17:20] LABS: Intact Parathyroid Hormone 36.3 pg/mL (7.5-53.5)
[2022-02-07 17:23] LABS: 25-OH Vitamin D, Total 45.6 ng/mL (30-100)
[2022-02-07 17:38] LABS: Thyroid Stimulating Hormone 3.05 uIU/mL (0.465-4.68)
[2022-02-07 18:17] LABS: Hemoglobin A1C 6.2 % (4.0-6.0)
== END ==
PROVIDERS: PCP Physician Assistant; Visit Provider Physician Assistant
DX: E11.9 Type 2 diabetes mellitus without complications (principal); E66.9 Obesity, unspecified; Z68.34 Body mass index [BMI] 34.0-34.9, adult; Z79.84 Long term (current) use of oral hypoglycemic drugs
CPT/HCPCS: 80053; 80061; 82306; 83036; 83970; 84443; 85025

== ENCOUNTER 2022-10-28 15:34 | Emergency (ER) | payer OTHER, SELFPAY ==
[2022-10-28 15:45] VITALS: BP 120/83; PULSE 85; RESP 22; TEMP 36.9; O2SAT 97; BMI 33.9
[2022-10-28 16:04] VITALS: BP 124/80; PULSE 85; RESP 19; TEMP 36.9; O2SAT 98; BMI 33.7
[2022-10-28 16:04] LABS: Apearance,Urine Cloudy (Clear); Bilirubin,Urine 1+ (Negative); Blood, Urine 1+ (Negative); Color,Urine Amber (Yellow); Glucose,Urine (UA) Negative (Negative); Ketones,Urine Negative (Negative); PH,Urine 5.5 (5.0-8.5); Protein,Urine 2+ (Negative); Specific Gravity, Urine >= 1.030 (1.005-1.030)
[2022-10-28 16:05] LABS: UTC Leukocyte Esterase,Urine Negative (Negative); UTC Nitrate,Urine Negative (Negative); UTC Pregnancy Test, Urine Negative (Negative); Urobilinogen,Urine 0.2 EU/dl (0.2)
--- NOTE | 2022-10-28 16:23 | CT_ITS ---
PROCEDURE INFORMATION: Exam: CT Abdomen And Pelvis Without Contrast Exam date and time: 10/28/2022 4:33 PM Age: 37 years old Clinical indication: Abdominal pain; Localized; Other: Hypogastric region; Prior surgery; Surgery date: 6+ months; Surgery type: Choleycystectomy; Patient HX: Hypogastric pain radiating to anus x days w hematuria. Smoker, 0 CA HX; Additional info: Sudden onset pelvic pain with hematuria TECHNIQUE: Imaging protocol: Computed tomography of the abdomen and pelvis without contrast. Radiation optimization: All CT scans at this facility use at least one of these dose optimization techniques: automated exposure control; mA and/or kV adjustment per patient size (includes targeted exams where dose is matched to clinical indication); or iterative reconstruction. REPORTING DATA: Count of CT and Cardiac NM exams in prior 12 months: This patient has received 0 known CTs and 0 known cardiac nuclear medicine studies in the 12 months prior to the current study. COMPARISON: CT CHEST WO CON 05/19/2021 2:41 PM FINDINGS: Lungs: Lung bases are clear. Liver: Fatty liver changes redemonstrated. Liver otherwise unremarkable. Gallbladder and bile ducts: Status post cholecystectomy. No evident bile duct dilatation. Pancreas: Normal. No ductal dilation. Spleen: Normal. No splenomegaly. Adrenal glands: Normal. No mass. Kidneys and ureters: Normal. No hydronephrosis. Stomach and bowel: Unremarkable. No obstruction. No mucosal thickening. Appendix: Appendix is normal. No evidence of appendicitis. Intraperitoneal space: Small amount of free fluid noted in the cul-de-sac. There is asymmetric prominence of the right ovary measuring 5.2 x 3.2 x 4.4 cm which contains a inhomogeneous fluid density lesion measuring up to 4.5 cm. Pelvic viscera otherwise unremarkable. Vasculature: Unremarkable. No abdominal aortic aneurysm. Lymph nodes: Unremarkable. No enlarged lymph nodes. Urinary bladder: Unremarkable as visualized. Reproductive: See Intraperitoneal space finding. Bones/joints: Unremarkable. No acute fracture. Soft tissues: See Intraperitoneal space finding. IMPRESSION: 1. Asymmetric prominence of the right ovary containing a complex appearing low-density lesion that may reflect a complex cyst. Associated small amount of pelvic free fluid. Advise further assessment of above findings with ultrasound of the pelvis. 2. Additional nonemergent findings as above.
--- NOTE | 2022-10-28 16:25 | HMH.EDUROGF ---
Discharge Plan Disposition Patient Disposition: Home, Self-Care Chief Complaint: Urogenital-Female Prescriptions Prescriptions: No Action norgestimate-ethinyl estradiol [Estarylla] 0.25-35 mg-mcg tablet 1 tab PO DAILY metformin 500 mg tablet extended release 24 hr 500 mg PO BID rosuvastatin 10 mg tablet 10 mg PO HS levocetirizine 5 mg tablet 5 mg PO DAILY Ozempic 0.25 mg or 0.5 mg(2 mg/1.5 mL) pen injector 0.5 mg SQ WEEKLY Referrals Follow up/Referrals: Aundrea Bacon PA [Primary Care Provider] - See instructions Activity Restrictions/Add. Instructions Additional Instructions/Restrictions: Your CT of the abdomen today showed that you have an ovarian cyst on the right side. I recommend that you follow-up with your water plumber in approximately 4 to 6 weeks to have that checked out again. Otherwise your work-up today did not show any life-threatening or dangerous conditions. Please return to the emergency department immediately if you feel worse in any way. You can take [id number] Tylenol and/or ibuprofen for your pain. Clinical Impressions Clinical Impression: Ovarian cyst Instructions Patient Instructions: DI for Ovarian Cyst Discharge ED Provider: Izabel Claudio Female Urogenital HPI General Chief complaint: Urogenital-Female Stated complaint: poss UTI Time Seen by Provider: 10/28/22 16:13 Mode of Arrival: Ambulatory Source of Information: Patient Limitations: No Limitations Description of Symptoms (Recalled from ER Triage Doc. by RN): 37 F presents with pelvic pain and pressure that started after she was working outside earlier. She became too hot and passed out. No injury noted. Patient denies dysuria or hematuria. History of Present Illness HPI Narrative: The patient presents to the emergency department complaining of a sudden onset lower pelvic pain which caused her to feel hot and almost faint. The pain has now resolved. The patient is a diabetic. She has had similar symptoms in the past but has never had them worked up. : No Related Data Home Medications Medication Instructions Recorded Confirmed levocetirizine 5 mg tablet 5 mg PO DAILY Allergy symptoms 10/28/22 10/28/22 metformin 500 mg tablet,extended 500 mg PO BID Diabetes 10/28/22 10/28/22 release 24 hr norgestimate 0.25 mg-ethinyl 1 tab PO DAILY Contraception 10/28/22 10/28/22 estradiol 35 mcg tablet (Estarylla) rosuvastatin 10 mg tablet 10 mg PO HS Cholesterol 10/28/22 10/28/22 semaglutide 0.25 mg or 0.5 mg (2 0.5 mg SQ WEEKLY Diabetes 10/28/22 10/28/22 mg/1.5 mL) subcutaneous pen injector Allergies Allergy/AdvReac Type Severity Reaction Status Date / Time sulfamethoxazole Allergy Intermediate Verified 10/03/22 11:50 [From Bactrim] trimethoprim [From Bactrim] Allergy Intermediate Verified 10/03/22 11:50 phenytoin [PHENYTOIN] Allergy Unknown Verified 10/03/22 11:50 amoxicillin Allergy Verified 10/03/22 11:50 Penicillins Allergy Verified 10/28/22 15:59 atorvastatin [From Lipitor] AdvReac Severe Muscle Pain Verified 10/03/22 11:50 [facility] Disclaimer: The information contained in this section may have been updated after the patient was seen, as this information can be updated by other users. Medical History (Updated 10/28/22 @ 17:52 by Izabel Claudio MD) Diabetes mellitus, type II HTN (hypertension) No significant past medical history Smoker Vertigo Family History Other No significant family history Social History Smoking Status: Current every day smoker tobacco type: cigarettes packs per day: 1 alcohol intake: never substance use type: denies use current occupational status: employed Travel in the last 8 weeks: None household members: family housing: house current occupational exposures/hazards: No ROS Obtaine
[2022-10-28 16:27] LABS: Microscopic, Urine URINE MICROSCOPIC (MICROSCOPIC)
[2022-10-28 16:31] LABS: Appearance,Urine CLEAR (Clear); Blood, Urine TRACE-I (Negative); Color,Urine YELLOW (Yellow); Glucose,Urine (UA) Negative (Negative); Ketones,Urine Negative (Negative); Leukocyte Esterase,Urine Negative (Negative); Nitrate,Urine Negative (Negative); PH,Urine 5.5 (5.0-8.5); Protein,Urine 2+ (Negative); Specific Gravity, Urine >= 1.030 (1.005-1.030); Urobilinogen,Urine 0.2 EU/dl (0.2)
[2022-10-28 16:34] LABS: Bilirubin,Urine 1+ (Negative); Urine Pregnancy, HCG Qual. Negative (Negative)
[2022-10-28 16:45] LABS: Bacteria,Urine 2+ /lpf; WBC,Urine Occasional #/hpf (0-3)
[2022-10-28 16:58] LABS: Basophils # 0.1 K/mm3 (0-0.2); Basophils % 0.4 % (0.1-2.0); Eosinophils # 0.3 K/mm3 (0.0-0.4); Hematocrit 44.7 % (37.0-47.0); Hemoglobin 14.5 g/dL (12.2-16.2); Lymphocytes # 2.9 K/mm3 (0.7-4.5); Lymphocytes % 23.7 % (10-50); Mean Corpuscular HGB Conc 32.6 g/dL (31.8-35.4); Mean Corpuscular Hemoglobin 31.4 pg (27.0-31.2); Mean Corpuscular Volume 96.5 fl (81-99); Mean Platelet Volume 8.4 fl (7.4-10.4); Monocytes # 0.4 K/mm3 (0.1-1.0); Neutrophils # 8.8 K/mm3 (1.8-7.8); Platelet Count 247 K/mm3 (142-424); Red Blood Count 4.63 M/mm3 (4.20-5.40); Red Cell Distribution Width 12.9 % (11.5-17.5); White Blood Count 12.5 K/mm3 (4.8-10.8)
[2022-10-28 17:04] LABS: Chloride 101 mmol/L (98-107); Potassium 4.2 mmoL/L (3.5-5.1); Sodium 138 mmol/L (136-145)
[2022-10-28 17:07] LABS: Alanine Aminotransferase 29 U/L (12-78); Albumin Level 4.5 g/dl (3.5-5.0); Albumin/Globulin Ratio 1.5 (1.1-1.8); Alkaline Phosphatase 59 U/L (38-126); Anion Gap 15.2 mEq/L (5-15); Aspartate Amino Transferase 33 U/L (14-36); Bilirubin,Total 0.2 mg/dl (0.2-1.3); Blood Urea Nitrogen 12 mg/dl (7-17); Carbon Dioxide 26 mmol/L (22.0-30.0); Creatinine Clearance Estimated 143 mL/min (50-200); Estimated Glomerular Filt Rate 80 ml/min (>60); GFR (African American) 97 ML/MIN (>60); Globulin 3.1 g/dL (1.3-3.2); Total Protein,Serum 7.6 g/dl (6.3-8.2)
[2022-10-28 17:08] LABS: Calcium 9.3 mg/dl (8.4-10.2); Glucose 191 mg/dl (74-100)
[2022-10-28 17:51] VITALS: BP 127/80; PULSE 88; RESP 18; TEMP 36.9; O2SAT 96
== END 2022-10-28 17:56 | disposition home or self-care (01) ==
LOC: UTC 15:38 → ER 16:04
PROVIDERS: Nurse Practitioner Family; Emergency Provider Emergency Medicine; PCP Physician Assistant
DX: N83.201 Unspecified ovarian cyst, right side (principal); R10.2 Pelvic and perineal pain; E11.9 Type 2 diabetes mellitus without complications; I10 Essential (primary) hypertension; F17.210 Nicotine dependence, cigarettes, uncomplicated
CPT/HCPCS: 36415; 74176; 80053; 81001; 81003; 81025; 85025; 87086; 99284; 99285

== ENCOUNTER → 2022-12-08 12:56 | Outpatient (CLI) | payer OTHER, SELFPAY ==
--- NOTE | 2022-12-08 12:59 | US_ITS ---
PROCEDURE: US TRANSVAGINAL CLINICAL INDICATION: pelvic pain and history of ovarian cyst COMPARISON: No exams were available for comparison FINDINGS: Transvaginal sonographic images were obtained of the pelvis. UTERUS: 6.8 cm x 5.4 cmx 4.2 cm with a combined endometrial thickness of 4.3mm. The uterus is retroverted. LEFT OVARY: [id number] with a volume of 10.6ml.There are several small follicles. RIGHT OVARY: 5cmx [id number] with a volume of 18.4ml. There are multiple follicles in the right ovary. There is a dominant follicle measuring 2.7 cm x 1.7 cm x 2.1 cm. Both ovaries are seen and appear normal. Doppler flow to both ovaries are seen. There is no fluid in the cul-de-sac. IMPRESSION: 1. Retroverted normal-appearing uterus with a thin endometrium. 2. Both ovaries are seen and appear normal. They both have multiple follicles. 3. The right ovary has a dominant follicle measuring 2.7 cm. 4. No fluid in the cul-de-sac. Dictated by: Ming Anguiano MD 12/09/2022 09:34 Ming Anguiano MD in [place] 12/09/2022 09:34
== END ==
PROVIDERS: PCP Physician Assistant; Visit Provider Obstetrics & Gynecology
DX: R10.2 Pelvic and perineal pain (principal); N83.209 Unspecified ovarian cyst, unspecified side
CPT/HCPCS: 76830

== ENCOUNTER → 2023-02-20 16:33 | Outpatient (CLI) | payer OTHER, SELFPAY ==
[2023-02-20 18:00] LABS: Basophils % 0.4 % (0.1-2.0); Eosinophils # 0.2 K/mm3 (0.0-0.4); Eosinophils % 2.1 % (0.1-12.0); Hematocrit 43.6 % (37.0-47.0); Hemoglobin 14.1 g/dL (12.2-16.2); Lymphocytes # 3.3 K/mm3 (0.7-4.5); Lymphocytes % 34.3 % (10-50); Mean Corpuscular HGB Conc 32.4 g/dL (31.8-35.4); Mean Corpuscular Hemoglobin 31.9 pg (27.0-31.2); Mean Corpuscular Volume 98.4 fl (81-99); Mean Platelet Volume 8.6 fl (7.4-10.4); Monocytes # 0.5 K/mm3 (0.1-1.0); Monocytes % 4.8 % (1.7-9.3); Neutrophils # 5.7 K/mm3 (1.8-7.8); Neutrophils % 58.5 % (37.0-80.0); Platelet Count 215 K/mm3 (142-424); Red Blood Count 4.43 M/mm3 (4.20-5.40); Red Cell Distribution Width 12.7 % (11.5-17.5); White Blood Count 9.7 K/mm3 (4.8-10.8)
[2023-02-20 18:15] LABS: Alanine Aminotransferase 20 U/L (12-78); Albumin Level 4.2 g/dl (3.5-5.0); Albumin/Globulin Ratio 1.6 (1.1-1.8); Alkaline Phosphatase 52 U/L (38-126); Anion Gap 12.9 mEq/L (5-15); Aspartate Amino Transferase 25 U/L (14-36); Blood Urea Nitrogen 14 mg/dl (7-17); Calcium 9.3 mg/dl (8.4-10.2); Carbon Dioxide 28 mmol/L (22.0-30.0); Chloride 102 mmol/L (98-107); Estimated Glomerular Filt Rate 94 ml/min (>60); GFR (African American) 113 ML/MIN (>60); Globulin 2.7 g/dL (1.3-3.2); Glucose 128 mg/dl (74-100); Potassium 3.9 mmoL/L (3.5-5.1); Sodium 139 mmol/L (136-145); Total Protein,Serum 6.9 g/dl (6.3-8.2)
[2023-02-20 18:18] LABS: Bilirubin,Total 0.1 mg/dl (0.2-1.3)
[2023-02-20 18:36] LABS: HCG,Quantitative < 2 mIU/ml (0-5.42)
== END ==
LOC: LAB 16:33
PROVIDERS: PCP Physician Assistant; Visit Provider Obstetrics & Gynecology
DX: R10.2 Pelvic and perineal pain (principal); Z30.2 Encounter for sterilization
CPT/HCPCS: 36415; 80053; 84702; 85025

== ENCOUNTER 2023-02-22 07:36 | Day surgery (SDC) | payer OTHER, SELFPAY ==
[2023-02-20 12:41] VITALS: BMI 35.5
[2023-02-22] VITALS (11 sets, daily range): BP systolic 127–140; BP diastolic 72–90; PULSE 81–99; RESP 16–18; TEMP 36.3–43; O2SAT 91–99
--- NOTE | 2023-02-22 08:09 | SUR.PREOP ---
Unable to scan medications d/t mobile units not working this morning.
--- NOTE | 2023-02-22 08:21 | EXP.ANES.CKL ---
[facility] Disclaimer: The information contained in this section may have been updated after the patient was seen, as this information can be updated by other users. Medical History Acute bronchitis Allergic rhinitis Allergies Bronchitis Diabetes mellitus, type II Diarrhea Dyspnea Epigastric abdominal pain History of COVID-19 History of gastroesophageal reflux (GERD) HTN (hypertension) Hyperthyroidism Left otitis media LGSIL on Pap smear of cervix 04/11/16 Maxillary sinusitis, acute Seizure disorder Sinusitis Smoker Sore throat Sterilization Tobacco use URI (upper respiratory infection) Urinary tract infection Vertigo Vertigo Surgical History History of tonsillectomy S/P cholecystectomy Family History Other No significant family history Social History Smoking Status: Current every day smoker tobacco type: cigarettes packs per day: 1 alcohol intake: never substance use type: denies use current occupational status: employed Travel in the last 8 weeks: None household members: family housing: house current occupational exposures/hazards: No [facility] Anesthesia Checklist Patient Identification Patient Identification: Arm Band and Family Structural Data Admitted From: Home Planned Operative Procedure/s: Bilateral Salpingectomy. Consent for Planned Operative Procedure(s) Verified: Yes Verified Documents: Surgical Consent and History and Physical NPO Status Verified Time NPO: 00:00 Additional verifications Patient : No Anesthesia Reactions: No Hx Blood Transfusions: No Blood Transfusion Reaction: No Cephalosporin Allergy: No Previous Colonoscopy: No Airway Assessment Mallampati Score:: Class III C-Spine Mobility Assessed: Yes TMJ Mobility Assessed: Yes Dentition: Good Dentition Neurological Assessment Level of Consciousness: Awake, Alert, Appropriate and Follows Commands Anesthesia Plan Anesthesia Risk discussed: Yes ASA Class: II Anesthesia Type: General Preoperative Comments Pre-Operative Comments: NIDDM, psently takes Metformin, plan to change o trulicity. Seizure 16 years ago. Obesity.
[2023-02-22 10:31] LABS: POC Glucose,Bedside 108 (70-110)
--- NOTE | 2023-02-22 11:10 | EXP.ANES.I ---
[facility] Anesthesia Record Part I Anesthesia Record I Intake, IV Amount: 1,100 Hydration: Adequate Estimated blood loss (mL): 20 Urine output (mL): 0 Blood Products used (#): none Blood Pressure: 133/86 SaO2: 91 Pulse Rate: 99 Airway Patency: Patent Respiratory Rate: 16 Temperature: 99.1 F Patient is:: Drowsy and Stable Stable to PACU at:: 11:05
[2023-02-22 11:17] LABS: POC Glucose,Bedside 216 (70-110)
--- NOTE | 2023-02-22 11:21 | EXP.OP.NOTE ---
Date of procedure: 02/22/23 Pre-op Diagnosis:: 1. Pelvic pain 2. Desires sterilization 3. Abnormal uterine bleeding 4. Heavy menstrual bleeding Post-op Diagnosis:: 1. Pelvic pain 2. Desires sterilization 3. Abnormal uterine bleeding 4. Heavy menstrual bleeding Procedure performed:: 1. Diagnostic laparoscopy 2. Laparoscopic bilateral salpingectomy 3. Hysteroscopy, dilation, and curettage 4. NovaSure endometrial ablation Surgeon:: Naye Tubbs DO System Validation Engineer(s):: Shweta Bose DO ELECTRONIC FIELD SERVICE ENGINEER:: Maury Nino Anesthesia: GETA Estimated blood loss (mL): 25 Operative findings:: Findings: -EUA revealed an 10-week retroverted uterus with smooth contour. no significant prolapse or support defects noted. -Laparoscopy revealed a retroverted uterus. There was a right ovarian cyst which appears benign and normal. Left ovary was without cyst. -Hysteroscopy revealed a thick endometrium with fluffy tissue in the cavity. No polyps were noted. Operative note:: The patient was taken to the operating room where general anesthesia was obtained and noted to be adequate.? SCDs were placed for thromboembolism prophylaxis and found to be working.? The patient was placed in the dorsal lithotomy position using yellowfin stirrups. Timeout verified the correct patient and procedure. The patient was prepped and draped in a usual sterile fashion.? A catheter was used to drain her bladder. An acorn uterine manipulator was placed 10 mL of 1% lidocaine with epinepherine was injected infraumbilically and a scalpel was used to make a 5 mm infraumbilical incision with the assistance from towel clamps. The skin was tented and Optiview blunt trocar was introduced into the abdomen the sheath was not long enough along trocar was obtained. Abdominal access was attempted again without success. I had my partner scrub in with me. The Veress needle was used, there were two audible clicks that were also palpated. A syringe was used to aspirate free air easily. The saline drop test passed assessment. CO2 gas was connected with an initial pressure of 9 mmHg noted.? Pneumoperitoneum was created to a pressure of 15 mmHg. The laparoscopic camera was inserted and a quick survey of the abdomen revealed grossly normal anatomy without entry injury.? The uterus appeared to be retroverted with a slightly enlarged size, normal shape and contour. The patient was placed in Trendelenburg.? 10mLs of local anesthetic was injected and a 5mm incision was then made in the right lower quadrant with careful attention to avoid the rectus muscles and vasculature and under direct laparoscopic visualization a blunt trocar was introduced into the abdominal cavity.? This process was repeated on the left side. The fallopian tubes were identified on the cornu of the uterus and followed out to the ovaries which revealed grossly appearing anatomy.? A grasper was used to elevate the left fallopian tube.? The Ligasure was used to grasp the fimbriated end of the fallopian tube, ensuring complete removal of the fimbriae, it was clamped, coagulated and transected. This process was repeated serially working towards the uterus to allow complete removal of the fallopian tube. Careful attention was given to transected the Mesosalpinx proximal to the fallopian tube. The fallopian tube was removed from the abdominal cavity and passed off the operative field to be sent to pathology.? Hemostasis was noted.? Attention was then turned to the right fallopian tube and the process was repeated. Hemostasis was noted and the tube was removed along with the trocar and handed off the operative field to be sent to pathology.? A full survey of the abdomen revealed no endometriosis lesions. We examined the posterior culdesac, and below both ovaries. We throughly examined the adnexa without notice of any signs of endometriosis. Pneumoperitoneum reduced, and all ports removed. The 3 abdominal incisions were closed with a single simple interrupted [place]
--- NOTE | 2023-02-22 13:18 | EXP.ANES.II ---
[facility] Anesthesia Record Part II Anesthesia Record Part II Discharge Time: 11:35 Destination: Surgical Day Care (OP Surgery) PACU nurse assessment reviewed?: Yes Patient Condition:: Good Anesthesia Complications:: None Swallowing reflex intact?: Yes Airway Patency: Patent Cyanosis?: No Blood Pressure: 127/76 SaO2: 92 Respiratory Rate: 16 Pulse Rate: 89 Temperature: 99 F Mental Status: Alert & Oriented Pain level:: 0 Nausea and/or vomitting:: None Intake, IV Amount: 0 Hydration: Adequate
== END 2023-02-22 12:10 | disposition home or self-care (01) ==
PROVIDERS: PCP Physician Assistant; Visit Provider Obstetrics & Gynecology
PROC: (CPT 49320; principal; 2023-02-22 09:15)
DX: Z30.2 Encounter for sterilization (principal); R10.2 Pelvic and perineal pain; N93.9 Abnormal uterine and vaginal bleeding, unspecified; N92.0 Excessive and frequent menstruation with regular cycle; N85.4 Malposition of uterus; E11.9 Type 2 diabetes mellitus without complications
CPT/HCPCS: 58661; 58563; 82962; J2405

== ENCOUNTER 2023-06-08 18:10 | Outpatient (CLI) | payer BC, SELFPAY ==
[2023-06-08 18:05] LABS: Chol/HDL Ratio 4.4 (1-3.5); Cholesterol 120 mg/dl (140-200); Glucose,Random 128 mg/dL (74-100); HDL Cholesterol 27 mg/dl (40-60); Triglycerides 189 mg/dl (30-150); VLDL Cholesterol 38 mg/dL (0-40)
[2023-06-08 18:17] LABS: Direct LDL Cholesterol 72.05 mg/dL (100-129)
== END 2023-06-08 23:59 ==
LOC: LAB.DROPOF 18:10
PROVIDERS: PCP Student in an Organized Health Care Education/Training Program; Visit Provider Student in an Organized Health Care Education/Training Program
DX: E03.8 Other specified hypothyroidism (principal); E11.9 Type 2 diabetes mellitus without complications; Z79.84 Long term (current) use of oral hypoglycemic drugs; Z79.85 Long-term (current) use of injectable non-insulin antidiabetic drugs; Z72.0 Tobacco use
CPT/HCPCS: 80061; 82947

== ENCOUNTER 2023-07-20 19:00 | Outpatient (CLI) | payer BC, SELFPAY ==
[2023-07-20 18:31] LABS: Basophils # 0.1 K/mm3 (0-0.2); Eosinophils # 0.2 K/mm3 (0.0-0.4); Eosinophils % 1.9 % (0.1-12.0); Hematocrit 46.5 % (37.0-47.0); Lymphocytes # 3.1 K/mm3 (0.7-4.5); Lymphocytes % 36.1 % (10-50); Mean Corpuscular HGB Conc 32.3 g/dL (31.8-35.4); Mean Corpuscular Hemoglobin 33.6 pg (27.0-31.2); Mean Platelet Volume 10.3 fl (7.4-10.4); Monocytes # 0.5 K/mm3 (0.1-1.0); Monocytes % 6.3 % (1.7-9.3); Neutrophils # 4.7 K/mm3 (1.8-7.8); Neutrophils % 54.8 % (37.0-80.0); Platelet Count 215 K/mm3 (142-424); Red Blood Count 4.47 M/mm3 (4.20-5.40); Red Cell Distribution Width 12.8 % (11.5-17.5); White Blood Count 8.6 K/mm3 (4.8-10.8)
[2023-07-20 19:08] LABS: Alanine Aminotransferase 36 U/L (12-78); Albumin Level 4.6 g/dl (3.5-5.0); Albumin/Globulin Ratio 1.8 (1.1-1.8); Alkaline Phosphatase 74 U/L (38-126); Anion Gap 14.3 mEq/L (5-15); Aspartate Amino Transferase 31 U/L (14-36); Bilirubin,Total 0.5 mg/dl (0.2-1.3); Blood Urea Nitrogen 12 mg/dl (7-17); Calcium 9.6 mg/dl (8.4-10.2); Carbon Dioxide 24 mmol/L (22.0-30.0); Chloride 105 mmol/L (98-107); Chol/HDL Ratio 4.9 (1-3.5); Cholesterol 152 mg/dl (140-200); Estimated Glomerular Filt Rate 111 ml/min (>60); GFR (African American) 135 ML/MIN (>60); Globulin 2.5 g/dL (1.3-3.2); Glucose 137 mg/dl (74-100); HDL Cholesterol 31 mg/dl (40-60); Potassium 4.3 mmoL/L (3.5-5.1); Sodium 139 mmol/L (136-145); Total Protein,Serum 7.1 g/dl (6.3-8.2); Triglycerides 257 mg/dl (30-150); VLDL Cholesterol 51 mg/dL (0-40)
[2023-07-20 19:14] LABS: Hemoglobin A1C 6.7 % (4.0-6.0)
[2023-07-20 19:27] LABS: 25-OH Vitamin D, Total 38.6 ng/mL (30-100)
== END 2023-07-20 23:59 ==
LOC: LAB.DROPOF 19:00
PROVIDERS: PCP Physician Assistant; Visit Provider Physician Assistant
DX: E11.9 Type 2 diabetes mellitus without complications (principal); E78.00 Pure hypercholesterolemia, unspecified; E66.9 Obesity, unspecified; Z68.35 Body mass index [BMI] 35.0-35.9, adult; Z79.84 Long term (current) use of oral hypoglycemic drugs
CPT/HCPCS: 80053; 80061; 82306; 83036; 84443; 85025

== ENCOUNTER 2023-08-19 08:05 | Emergency (ER) | payer BC, SELFPAY ==
[2023-08-19 08:20] VITALS: BP 114/77; PULSE 66; RESP 20; TEMP 36.9; O2SAT 99; BMI 36.1
--- NOTE | 2023-08-19 08:33 | EXP.UTC ---
Discharge Plan Disposition Patient Disposition: Home, Self-Care Condition: Good Prescriptions Prescriptions: New guaifenesin [Mucinex] 600 mg tablet extended release 12hr 1,200 mg PO BID PRN (Reason: cough) Qty: 20 0RF azithromycin [Zithromax Z-Himanshu] 250 mg tablet See Rx Instructions .ROUTE .COMPLEX 5 Days Qty: 6 0RF Rx Instructions: For 250 mg dose pack: take 500 mg today (day 1), then 250 mg for 4 days (days 2-5) No Action rosuvastatin 10 mg tablet See Rx Instructions .ROUTE .COMPLEX Qty: 30 0RF Dose Instruction: TAKE ONE TABLET BY MOUTH ONCE A DAY Rx Instructions: TAKE ONE TABLET BY MOUTH ONCE A DAY levothyroxine 50 mcg tablet 50 mcg PO DAILY Qty: 90 0RF cetirizine [Zyrtec] 10 mg Tablet 10 mg PO DAILY metformin 500 mg tablet extended release 24 hr See Rx Instructions .ROUTE .COMPLEX Rx Instructions: TAKE ONE TABLET BY MOUTH 2 TIMES A DAY Referrals Follow up/Referrals: Aundrea Bacon PA [Primary Care Provider] - See instructions Activity Restrictions/Add. Instructions Additional Instructions/Restrictions: *Monitor Temp, Over the counter Motrin or Tylenol as directed/as needed Tylenol every 4 hours and Motrin every 6 hours (as long as your family doctor has told you that you can take it) for fever or pain. and straight to ER if unable to lower temp less than 101.0 after medication given *Warm salt water gargles may help to soothe the throat *Throat Lozenges? *Warm fluids like tea with honey may help to soothe the throat? *Sleep elevated *Humidifier/Vaporizer Your throat swab was sent for culture. Those results are typically sent to your primary care. Be sure to follow up in 2-3 days with your family doctor/primary care physician if no improvement so they can review those result and treat if necessary. If you don?t have a primary care doctor, I recommend you get one but in the mean time, you will have to return to a walk in clinic Follow up IMMEDIATELY for new or worsening symptoms or no Noticeable improvement over the next 48-72 hours. 911 for difficulty breathing or swallowing Clinical Impressions Clinical Impression: Pharyngitis Instructions Patient Instructions: Sore Throat, Guaifenesin Discharge ED Provider: Sari Norton [facility] [place] General Stated complaint: congestion,sore throat Mode of Arrival: Ambulatory Source of Information: Patient Limitations: No Limitations Time Seen by Provider: 08/19/23 08:33 Description of Symptoms (Recalled from Triage Doc. by RN): PATIENT C/O COUGH WITH YELLOW SPUTUM, CONGESTION, SORE THROAT, AND BODY ACHES SINCE SUNDAY NIGHT HEENT Symptoms (Recalled from RN notes): Yes Resp Symptoms (Recalled from RN notes): Yes Skin Symptoms (Recalled from RN notes): No MS Symptoms (Recalled from RN notes): No Functional Status (Recalled from RN notes): WNL History of Present Illness Provider Complaint: Patient states that she started feeling bad on Sunday with sore throat, chest and head congestion, cough that is productive at times and over all not feling well States today her throat was hurting worse and felt like the congestion in her chest was getting worse so she came in to get checked Related Data Home Medications Medication Instructions Recorded Confirmed metformin 500 mg tablet,extended See Rx Instructions .Route 02/22/23 08/19/23 release 24 hr .COMPLEX Diabetes cetirizine 10 mg tablet (Zyrtec) 10 mg PO DAILY 08/19/23 08/19/23 Previous Rx's Medication Instructions Recorded rosuvastatin 10 mg tablet See Rx Instructions .Route 07/20/23 .COMPLEX #30 tabs levothyroxine 50 mcg tablet 50 mcg PO DAILY #90 tabs 07/24/23 azithromycin 250 mg tablet See Rx Instructions PO .COMPLEX 5 08/19/23 (Zithromax Z-Himanshu) days #6 tabs guaifenesin 600 mg tablet, 1,200 mg (2 x 600 mg) PO BID PRN 08/19/23 extended release 12 hr (Mucinex) cough #20 tabs Allergies Allergy/AdvReac Type Severity Reaction Status Date / Time sulfamethoxazole Allergy Intermediate Verified 07/20/23 10:01 [From Bactrim] trimethoprim [From Bactrim] Allergy Intermediate Verified 07/20/23 10:01 phenytoin [PHENYTOIN] Allergy Unknown Verified 07/20/23 10:01 amoxicillin Allergy Verified 07/20/23 10:01 Penicillins Allergy Verified 07/20/23 10:01 atorvastatin [From Lipitor] AdvReac Severe Muscle Pain Verified 07/20/23 10:01 Worker's Comp Is this a Worker's Comp case?: No [facility] Disclaimer: The information contained in this section may have been updated after the patient was seen, as this information can be updated by other users. Medical History Acute bronchitis Allergic rhinitis Allergies Bronchitis Diabetes mellitus, type II Diarrhea Dyspnea Encounter for biometric screening Epigastric abdominal pain History of COVID-19 History of gastroesophageal reflux (GERD) HTN (hypertension) Hyperthyroidism Left otitis media LGSIL on Pap smear of cervix 04/11/16 Maxillary sinusitis, acute Seizure disorder Sinusitis Smoker Sore throat Sterilization Tobacco use URI (upper respiratory infection) Urinary tract infection Vertigo Vertigo Surgical History H/O bilateral salpingectomy History of endometrial ablation History of tonsillectomy S/P cholecystectomy Family History Other No significant family history Social History Smoking Status: Current every day smoker tobacco type: cigarettes packs per day: 1 alcohol intake: never substance use type: denies use current occupational status: employed Travel in the last 8 weeks: None household members: family housing: house current occupational exposures/hazards: No ROS Obtained: Yes All systems reviewed & no additional complaints except as documented and Yes Systems reviewed as appropriate & no additional complaints except as documented Constitutional Constitutional: Reports system reviewed and no additional complaints, except as documented, Reports as per HPI and Reports headache(s) ENT Ears, Nose, Mouth, and Throat: Reports system reviewed and no additional complaints, except as documented, Reports as per HPI, Reports headache(s), Reports nasal congestion, Reports sinus pressure and Reports sore throat Cardiovascular Cardiovascular: Reports system reviewed and no additional complaints, except as documented and Reports as per HPI Respiratory Respiratory: Reports system reviewed and no additional complaints, except as documented, Reports as per HPI, Denies shortness of breath, Reports chest congestion and Reports cough Neurologic Neurologic: Reports headache(s) Physical Exam General General appearance: alert and in no apparent distress ENT ENT exam: Present mucous membranes moist Expanded ENT Exam Nose exam: Present sinus tenderness Throat exam: Present other (Pharyngeal erythema noted with PND) Respiratory Respiratory exam: Present normal lung sounds bilaterally; Absent respiratory distress or wheezes Cardiovascular Cardiovascular exam: Present regular rate; Absent normal rhythm or bradycardia Abdominal Exam Abdominal exam: Present soft, distention and normal bowel sounds Neurological Exam Neurological exam: Present alert, oriented X3 and normal gait Medical Decision Making Jorge Inquiry Pt receiving controlled substance: No Jorge was queried for this patient: No Vital Signs: 08/19/23 08:20 Temperature 98.5 F Temperature Source Oral Pulse Rate [Left Brachial] 66 Respiratory Rate 20 Blood Pressure [Left Arm] 114/77 Blood Pressure Mean [Left Arm] 89 Blood Pressure Source [Left Arm] Automatic Cuff Blood Pressure Position [Left Arm] Sitting 02 Sat by Pulse Oximetry 99 Oxygen Delivery Method Room Air Lab Data Lab results reviewed: Yes I reviewed the patient's lab results.
[2023-08-19 08:47] VITALS: BP 114/77; PULSE 66; RESP 20; TEMP 36.9; O2SAT 99
[2023-08-19 08:55] LABS: UTC Strep Screen (Rapid) Negative (Negative)
[2023-08-19 08:56] LABS: UTC Influenza A Antigen Negative (Negative); UTC Influenza B Antigen Negative (Negative)
== END 2023-08-19 08:53 | disposition home or self-care (01) ==
PROVIDERS: Emergency Provider Nurse Practitioner; PCP Physician Assistant
DX: J02.9 Acute pharyngitis, unspecified (principal); R05.9 Cough, unspecified; R09.81 Nasal congestion; M79.18 Myalgia, other site; F17.210 Nicotine dependence, cigarettes, uncomplicated; E11.9 Type 2 diabetes mellitus without complications; K21.9 Gastro-esophageal reflux disease without esophagitis; I10 Essential (primary) hypertension; E03.9 Hypothyroidism, unspecified; Z79.84 Long term (current) use of oral hypoglycemic drugs
CPT/HCPCS: 87804; 87880; 99204; 99212; G0463

== ENCOUNTER 2023-11-05 18:00 | Outpatient (CLI) | payer BC, SELFPAY ==
[2023-11-05 18:23] LABS: Alanine Aminotransferase 26 U/L (12-78); Albumin Level 4.6 g/dl (3.5-5.0); Albumin/Globulin Ratio 1.8 (1.1-1.8); Alkaline Phosphatase 75 U/L (38-126); Aspartate Amino Transferase 29 U/L (14-36); Bilirubin,Total 0.4 mg/dl (0.2-1.3); Blood Urea Nitrogen 15 mg/dl (7-17); Calcium 9.5 mg/dl (8.4-10.2); Carbon Dioxide 24 mmol/L (22.0-30.0); Chloride 103 mmol/L (98-107); Chol/HDL Ratio 4.5 (1-3.5); Cholesterol 140 mg/dl (140-200); Estimated Glomerular Filt Rate 80 ml/min (>60); GFR (African American) 97 ML/MIN (>60); Globulin 2.6 g/dL (1.3-3.2); Glucose 149 mg/dl (74-100); HDL Cholesterol 31 mg/dl (40-60); Sodium 138 mmol/L (136-145); Total Protein,Serum 7.2 g/dl (6.3-8.2); Triglycerides 225 mg/dl (30-150); VLDL Cholesterol 45 mg/dL (0-40)
[2023-11-05 18:35] LABS: Direct LDL Cholesterol 70.24 mg/dL (100-129)
[2023-11-05 18:54] LABS: Thyroid Stimulating Hormone 7.56 uIU/mL (0.465-4.68)
[2023-11-05 19:03] LABS: Hemoglobin A1C 6.7 % (4.0-6.0)
== END 2023-11-05 23:59 | disposition home or self-care (01) ==
LOC: LAB.DROPOF 11-06 08:26
PROVIDERS: PCP Physician Assistant; Visit Provider Physician Assistant
DX: E11.65 Type 2 diabetes mellitus with hyperglycemia (principal); Z79.84 Long term (current) use of oral hypoglycemic drugs
CPT/HCPCS: 80053; 80061; 83036; 84443

== ENCOUNTER 2024-03-21 11:02 | Outpatient (CLI) | payer BC, SELFPAY | END 2024-03-21 23:59 | disposition home or self-care (01) | LOC: LAB.DROPOF 03-24 11:02 | PROVIDERS: PCP Student in an Organized Health Care Education/Training Program; Visit Provider Student in an Organized Health Care Education/Training Program | DX: R09.81 Nasal congestion (principal) | CPT/HCPCS: 87635 ==

== ENCOUNTER 2024-05-12 10:07 | Outpatient (CLI) | payer BC, SELFPAY ==
[2024-05-12 18:54] LABS: Coronavirus 19, PCR Not Detected (NotDetected); Influenza A, PCR Not Detected (NotDetected); Influenza B, PCR Not Detected (NotDetected)
== END 2024-05-12 23:59 | disposition home or self-care (01) ==
LOC: LAB.DROPOF 05-13 10:07
PROVIDERS: PCP Student in an Organized Health Care Education/Training Program; Visit Provider Student in an Organized Health Care Education/Training Program
DX: R05.9 Cough, unspecified (principal); H92.03 Otalgia, bilateral
CPT/HCPCS: 87636

== ENCOUNTER 2024-06-18 08:55 | Outpatient (CLI) | payer BC, SELFPAY ==
[2024-06-18 17:34] LABS: Microscopic, Urine URINE MICROSCOPIC (MICROSCOPIC)
[2024-06-18 17:51] LABS: Basophils # 0.1 K/mm3 (0-0.2); Basophils % 0.6 % (0.1-2.0); Eosinophils # 0.2 K/mm3 (0.0-0.4); Eosinophils % 1.6 % (0.1-12.0); Hemoglobin 14.4 g/dL (12.2-16.2); Lymphocytes # 3.3 K/mm3 (0.7-4.5); Lymphocytes % 30.1 % (10-50); Mean Corpuscular HGB Conc 32.7 g/dL (31.8-35.4); Mean Corpuscular Hemoglobin 32.4 pg (27.0-31.2); Mean Corpuscular Volume 98.9 fl (81-99); Mean Platelet Volume 11.2 fl (7.4-10.4); Monocytes # 0.6 K/mm3 (0.1-1.0); Monocytes % 5.8 % (1.7-9.3); Neutrophils # 6.7 K/mm3 (1.8-7.8); Neutrophils % 61.7 % (37.0-80.0); Platelet Count 244 K/mm3 (142-424); Red Blood Count 4.45 M/mm3 (4.20-5.40); Red Cell Distribution Width 13.2 % (11.5-17.5); White Blood Count 10.8 K/mm3 (4.8-10.8)
[2024-06-18 18:07] LABS: Appearance,Urine CLEAR (Clear); Bilirubin,Urine Negative (Negative); Blood, Urine Negative (Negative); Color,Urine YELLOW (Yellow); Glucose,Urine (UA) Negative (Negative); Ketones,Urine Negative (Negative); Leukocyte Esterase,Urine Negative (Negative); Nitrate,Urine Negative (Negative); Protein,Urine Negative (Negative); Urobilinogen,Urine 0.2 EU/dl (0.2)
[2024-06-18 18:23] LABS: Microalbumin/Creatinine Ratio 50.4
[2024-06-18 18:28] LABS: Alanine Aminotransferase 30 U/L (12-78); Albumin/Globulin Ratio 2.2 (1.1-1.8); Alkaline Phosphatase 68 U/L (38-126); Aspartate Amino Transferase 31 U/L (14-36); Bilirubin,Total 0.4 mg/dl (0.2-1.3); Blood Urea Nitrogen 16 mg/dl (7-17); Calcium 9.7 mg/dl (8.4-10.2); Carbon Dioxide 27 mmol/L (22.0-30.0); Chloride 102 mmol/L (98-107); Chol/HDL Ratio 4.7 (1-3.5); Cholesterol 137 mg/dl (140-200); Estimated Glomerular Filt Rate 137 ml/min (>60); GFR (African American) 165 ML/MIN (>60); Globulin 2.3 g/dL (1.3-3.2); Glucose 93 mg/dl (74-100); HDL Cholesterol 29 mg/dl (40-60); Sodium 140 mmol/L (136-145); Total Protein,Serum 7.3 g/dl (6.3-8.2); Triglycerides 319 mg/dl (30-150); VLDL Cholesterol 64 mg/dL (0-40)
[2024-06-18 18:29] LABS: Creatinine,Urine Random 42 mg/dL (Not Estab.)
[2024-06-18 18:40] LABS: Direct LDL Cholesterol 65.78 mg/dL (100-129)
[2024-06-18 18:52] LABS: Free T4 (Free Thyroxine) 0.97 ng/dl (0.78-2.19)
[2024-06-18 18:54] LABS: 25-OH Vitamin D, Total 34.2 ng/mL (30-100); Bacteria,Urine 2+ /lpf; WBC,Urine Occasional #/hpf (0-3)
[2024-06-18 19:00] LABS: Thyroid Stimulating Hormone 4.76 uIU/mL (0.465-4.68)
[2024-06-18 19:04] LABS: Hemoglobin A1C 6.3 % (4.0-6.0)
[2024-06-18 19:18] LABS: Vitamin B12 458 pg/mL (239-931)
[2024-06-18 19:45] LABS: Iron 136 ug/dL (37-170)
[2024-06-18 19:55] LABS: Total Iron Binding Capacity 380 ug/dL (265-497)
[2024-06-18 20:22] LABS: Ferritin 51.8 ng/ml (6.24-137)
[2024-06-18 20:28] LABS: HIV Combo NEGATIVE (Negative)
[2024-06-18 20:36] LABS: Hepatitis C Ab Qual. W/ RFX NEGATIVE (Negative)
== END 2024-06-18 23:59 | disposition home or self-care (01) ==
LOC: LAB.DROPOF 06-19 08:56
PROVIDERS: PCP Nurse Practitioner Family; Visit Provider Nurse Practitioner Family
DX: E03.9 Hypothyroidism, unspecified (principal); E11.65 Type 2 diabetes mellitus with hyperglycemia; E53.8 Deficiency of other specified B group vitamins; Z11.4 Encounter for screening for human immunodeficiency virus [HIV]; Z11.59 Encounter for screening for other viral diseases; R53.83 Other fatigue; E78.5 Hyperlipidemia, unspecified; E55.9 Vitamin D deficiency, unspecified
CPT/HCPCS: 80053; 80061; 81001; 82043; 82306; 82570; 82607; 82728; 83036; 83540; 83550; 84439; 84443; 85025; 86803; 87086; 87389

== ENCOUNTER 2025-02-20 08:56 | Outpatient (CLI) | payer BC, SELFPAY ==
[2025-02-20 17:26] LABS: Albumin Level 4.4 g/dl (3.5-5.0); Chloride 101 mmol/L (98-107); Potassium 3.7 mmoL/L (3.5-5.1); Sodium 137 mmol/L (136-145)
[2025-02-20 17:29] LABS: Alanine Aminotransferase 30 U/L (12-78); Albumin/Globulin Ratio 1.7 (1.1-1.8); Alkaline Phosphatase 63 U/L (38-126); Anion Gap 12.7 mEq/L (5-15); Aspartate Amino Transferase 25 U/L (14-36); Bilirubin,Total 0.4 mg/dl (0.2-1.3); Blood Urea Nitrogen 12 mg/dl (7-17); Carbon Dioxide 27 mmol/L (22.0-30.0); Cholesterol 130 mg/dl (140-200); Creatinine,Serum 0.70 mg/dl (0.52-1.04); Estimated Glomerular Filt Rate 93 ml/min (>60); GFR (African American) 112 ML/MIN (>60); Globulin 2.6 g/dL (1.3-3.2); Total Protein,Serum 7.0 g/dl (6.3-8.2); Triglycerides 240 mg/dl (30-150)
[2025-02-20 17:30] LABS: Calcium 9.9 mg/dl (8.4-10.2); Glucose 119 mg/dl (74-100); HDL Cholesterol 30 mg/dl (40-60)
[2025-02-20 18:00] LABS: Thyroid Stimulating Hormone 3.76 uIU/mL (0.465-4.68)
[2025-02-20 18:01] LABS: Hemoglobin A1C 6.7 % (4.0-6.0)
--- OUTSIDE RECORDS SUMMARY | 2025-02-23 09:02 | XMS_ITS | Clinical Summary ---
Author Organization [facility] Address [address] [place] [address] Care Team Providers Care Outside Medical Sales Representative Name Role Phone Garth Moreland [employer] Primary Care Provider [phone] Allergies Active Allergy Reactions Criticality Noted Date Comments Amoxicillin Unknown - Patient st ates they do not know rxn details Low 09/19/2021 Atorvastatin Other - please docum ent in the comment field High 09/19/2021 Muscle pain Phenytoin Unknown - Patient st ates they do not know rxn details Low 09/19/2021 Sulfamethoxazole Unknown - Patient st ates they do not know rxn details Medium 09/19/2021 Trimethoprim Unknown - Patient st ates they do not know rxn details Medium 09/19/2021 Medications aspirin 81 MG EC tablet Take 81 mg by mouth 1 (one) time each day. Active Continuous Blood Gluc Sensor (Dexcom G6 Sensor) misc Acti ve Continuous Blood Gluc Mirror Maker (Dexcom G6 bus escort) device Inject 1 Device under the skin if needed. Use as instructed Active Continuous Blood Gluc Transmit (Dexcom G6 transmitter) misc Inject under the skin if needed. Use as instructed Active fluticasone (Flonase) 50 MCG/ACT nasal spray Administer 1 spray into each nostril 1 (one) time each day. Shake gently. Before first use, prime pump. After use, clean tip and replace cap. Active levocetirizine (Xyzal) 5 MG tablet Take by mouth 1 (one) time each day in the evening. Active levothyroxine (Synthroid, Levoxyl) 175 MCG tablet Take 175 mcg by mouth 1 (one) time each day before breakfast. Active metFORMIN (Glucophage) 500 MG tablet Take 500 mg by mouth 2 (two) times a day with meals. Active norgestimate-et hinyl estradiol (Ortho-Cyclen) 0.25-35 MG-MCG tablet Take 1 tablet by mouth 1 (one) time each day. Active omeprazole (PriLOSEC) [address] capsule Take 20 mg by mouth 1 (one) time each day. Do not crush or chew. Active rosuvastatin (Crestor) 10 MG tablet Take by mouth every night. Active semaglutide (Ozempic) 2 MG/1.5ML solution pen-injector inj. pen Inject under the skin 1 (one) time per week. Active Active Problems Problem Noted Date Diagnosed Date Microalbuminuria 10/02/2021 Class 2 obesity due to exces s calories with body mass index (BMI) of 35.0 to 35.9 in adult 10/02/2021 Family History Medical History Relation Name Comments Diabetes Father Relation Name Status Comments Father Alive Mother Alive Social History Tobacco Use Types Packs/Day Years Used Date Smoking Tobacco: Every Day Smokeless Tobacco: Never Alcohol Use Standard Drinks/Week Comments Never 0 (1 standard drink = 0.6 oz pur e alcohol) Comments Unknown Sex and Gender Information Value Date Recorded Sex Assigned at Female 05/19/2021 4:35 PM EST Legal Sex Female 8:09 PM EDT Gender Identity Female 05/19/2021 4:35 PM EST Sexual Orientation Straight 05/19/2021 4: 35 PM EST Last Filed Vital Signs Vital Sign Reading Time Taken Comments Blood Pressure 132/83 09/22/2021 2:50 PM EDT Pulse 80 09/22/2021 2:50 PM EDT Temperature - - Respiratory Rate - - Oxygen Saturation - - Inhaled Oxygen Concentration - - Weight 99.8 kg (220 lb) 09/22/2021 2:50 PM EDT Height 167.6 cm (5' 6 ) 09/22/2021 2:50 PM EDT Body Mass Index 35.51 09/22/2021 2:50 PM EDT Plan of Treatment Health Maintenance Due Date Last Done Comments [facility]-Depression Screening 1984 [facility]-/Child/Adol SDOH Screenings 1984 [facility]-Varicella Vaccines (1 of 2 - 13+ 2-dose series) 1997 [facility]- SDOH Screenings 2002 [facility]-Adult SDOH Screenings 2002 [facility]-DTaP,Tdap,and Td Vaccines (1 - Tdap) 2003 [facility]-Hepatitis B Vaccines (1 of 3 - 19+ 3-dose series) 2003 [facility]-Pap Smear 2005 HPV Vaccines (1 - 3-dose SCDM series) 2011 [facility]-Cervical Cancer Screening 2014 [facility]-HPV/Cotest 2014 [id number] Vaccine (2 - 2024- season) 2025 03/03/2021 [facility]-Influenza Vaccine (#1) 01/19/202503/10, 03/14/2018, 03/03/2009, Additional history exists [facility]-Zoster Vaccines (1 of 2) 2034 [facility]-Hepatitis A Vaccines Aged Out 01/07/2018 No longer eligible based on patient's age to complete this topic [facility]-HIB Vaccines Aged Out No longer e ligible based on patient's age to complete this topic [facility]-IPV Vaccines Aged Out No longer e ligible based on patient's age to complete this topic [facility]-Pneumococcal Vaccine: Pediatrics (0 to 5 Years) and At-Risk Patients (6 to 49 Years) Aged Out No longer eligible based on patient's age to complete this topic [facility]-Rotavirus Vaccines Aged Out No lo nger eligible based on patient's age to complete this [place] [address] [facility] MEDICAID Care Teams Outside Medical Sales Representative Relationship Specialty Start Date End Date Garth Moreland APRN [address] [place] [address] PCP - General 05/21/20
== END 2025-02-20 23:59 ==
LOC: LAB.DROPOF 02-23 08:56
PROVIDERS: PCP Nurse Practitioner Family; Visit Provider Nurse Practitioner Family
DX: E78.5 Hyperlipidemia, unspecified (principal); E11.9 Type 2 diabetes mellitus without complications
CPT/HCPCS: 80053; 80061; 83036; 84443